=== PATIENT | male | born 1970 | race Hispanic/Latino ===

== ENCOUNTER 2020-10-18 20:12 | Inpatient (IN) | payer OTHER ==
[2020-10-18] MEDS ORDERED: ALBUTEROL 2.5 MG/3 ML NEB SOL ONE (20:52)
[2020-10-18] MEDS ORDERED: METHYLPREDNISOLONE 125 MG INJ ONE (20:52)
[2020-10-18] MEDS ORDERED: IPRATROPIUM BROM 0.5MG/2.5ML ONE (20:53)
[2020-10-18 21:31] LABS: Absolute Lymphocytes (CBC) 0.8 K/uL (0.7-4.9); Basophils % 0.4 % (0-1.3); Hematocrit 42.6 % (39.6-49.0); Lymphocytes % 12.6 % (15.3-44.8); MPV 8.6 fL (7.6-11.3); RBC Red Blood Cell Count 4.79 M/uL (4.33-5.43)
[2020-10-18 21:54] LABS: ALT/SGPT 66 U/L (12-78); AST/SGOT 94 U/L (15-37); Albumin 2.8 g/dL (3.4-5.0); Alkaline Phosphatase 44 U/L (45-117); BUN Blood Urea Nitrogen 25 mg/dL (7-18); Bicarbonate 26 mmol/L (21-32); Bilirubin Direct 0.2 mg/dL (0-0.2); Bilirubin Total 0.6 mg/dL (0.2-1.0); Ferritin 2215.2 ng/mL (26-388); Glucose Level 142 mg/dL (74-106); Protein, Total 7.6 g/dL (6.4-8.2); Sodium Level 137 mmol/L (136-145); Troponin (Emerg Dept Use Only) < 0.02 ng/mL (0.0-0.045)
[2020-10-18 22:00] LABS: Protime INR 1.24
[2020-10-18 22:26] LABS: SARS-COV-2 RT PCR POSITIVE (NEGATIVE)
--- NOTE | 2020-10-18 23:09 | ER ---
Nurse's Notes [facility] Name: Cornelio Last Age: 50 yrs Sex: Male : 1970 Arrival Date: 10/18/2020 Time: 20:17 Bed 7 Private MD: Diagnosis: Pneumonia due to SARS-associated coronavirus;Hypoxia Presentation: 10/18 20:19 Chief complaint: EMS states: Pt reports SOB, lives with covid positive family. 77 on RA jb4 90 on NRB. Coronavirus screen: Client presents with at least one sign or symptom that may indicate coronavirus-19. Standard/surgical mask placed on the client. Provider contacted for isolation considerations. Ebola Screen: No symptoms or risks identified at this time. Initial Sepsis Screen: Does the patient meet any 2 criteria? RR > 20 per min. Yes Does the patient have a suspected source of infection? No. Patient's initial sepsis screen is negative. Risk Assessment: Do you want to hurt yourself or someone else? Patient reports no desire to harm self or others. Onset of symptoms was October 18, 2020. Transition of care: patient was not received from another setting of care. 20:19 Method Of Arrival: EMS: [facility] jb4 20:19 Acuity: DARVIN 1 jb4 Historical: - Allergies: 20:22 No Known Allergies; jb4 - Home Meds: 20:22 None [Active]; jb4 - PMHx: 20:22 None; jb4 - PSHx: 20:22 None; jb4 - Immunization history:: Adult Immunizations up to date. - Social history:: Smoking status: Patient denies any tobacco usage or history of. Patient/guardian denies using alcohol, street drugs. Screenin:34 Abuse screen: Denies threats or abuse. Denies injuries from another. Nutritional mg2 screening: No deficits noted. Tuberculosis screening: No symptoms or risk factors identified. Fall Risk IV access (20 points). Assessment: 20:20 General: Appears distressed, uncomfortable, ill, Behavior is cooperative. Pain: Denies jb4 pain. Neuro: Level of Consciousness is awake, alert, obeys commands, Oriented to person, place, time, situation. Cardiovascular: Patient's skin is warm and dry. Rhythm is sinus rhythm. Respiratory: Airway is patent Respiratory effort is labored, shallow, Respiratory pattern is symmetrical, tachypnea Breath sounds are clear in mediastinum, left upper lobe, left posterior upper lobe and right posterior upper lobe Breath sounds with crackles in left posterior lower lobe, right posterior middle lobe and right posterior lower lobe Breath sounds are diminished in right middle lobe, left lower lobe and right lower lobe. GI: No signs and/or symptoms were reported involving the gastrointestinal system. : No signs and/or symptoms were reported regarding the genitourinary system. EENT: No signs and/or symptoms were reported regarding the EENT system. Derm: Skin is intact, Skin is pink, warm \T\ dry. Musculoskeletal: Circulation, motion, and sensation intact. Range of motion: intact in all extremities. 21:30 Reassessment: Patient appears in no apparent distress at this time. Patient and/or jb4 family updated on plan of care and expected duration. Pain level reassessed. Pt reports feeling significantly better and taking deeper breaths is easier. respirations remain tachypneic and labored, appears to be more at ease. Patient states feeling better. Patient states symptoms have improved. 22:30 Reassessment: Patient appears in no apparent distress at this time. No changes from jb4 previously documented assessment. Patient and/or family updated on plan of care and expected duration. Pain level reassessed. Vital Signs: 20:19 BP 141 / 93; Pulse 87; Resp 36; Temp 98.2(TE); Pulse Ox 90% on Non-rebreather mask; jb4 Weight 124.74 kg (R); Height 5 ft. 11 in. (180.34 cm) (R); Pain 0/10; 21:34 BP 117 / 87; Pulse 90; Pulse Ox 91% on NC; mg2 21:44 Resp 34; jb4 22:30 BP 120 / 69; Pulse 93; Resp 35; Pulse Ox 88% on 15 lpm NC; jb4 23:30 BP 110 / 71; Pulse 81; Resp 35; Pulse Ox 92% on 15 lpm NC; jb4 20:19 Body Mass Index 38.35 (124.74 kg, 180.34 cm) jb4 ED Course: 20:17 Patient arrived in ED. bb 20:19 Estiven Viveros, RN is Primary Nurse. jb4 20:22 Triage completed. jb4 20:22 Arm band placed on right wrist. jb4 20:26 Angelito Benton NP is PHCP. pm1 20:26 Glen White MD is Attending Physician. pm1 20:40 Initial lab(s) drawn, by me, sent to lab. Inserted saline lock: 18 gauge in right jb4 antecubital area, using aseptic technique. Blood collected. 20:40 First set of blood cultures drawn by me. jb4 20:55 Second set of blood cultures drawn by me. jb4 22:18 Chest Single View In Process Unspecified. EDMS 23:08 Mauro Godiwn PA is Hospitalizing Provider. pm1 04 00:24 Danny Guadalupe is Hospitalizing Provider. pm1 01:17 Patient has correct armband on for positive identification. mg2 01:17 No provider procedures requiring assistance completed. Patient admitted, IV remains in mg2 place. Administered Medications: 10/18 20:51 Drug: SOLU-Medrol 125 mg Route: IVP; Site: right antecubital; jb4 20:52 Drug: Albuterol - atroVENT (ipratropium) (3:1) (2.5 mg - 0.5 mg) 3 ml Route: Nebulizer; jb4 23:49 Drug: NS 0.9% 1000 ml Route: IV; Rate: 1000 ml; Site: right antecubital; mg2 Outcome: 23:08 Decision to Hospitalize by Provider. pm1 10/19 01:26 Patient left the ED. mg2 Signatures: Dispatcher [employer] EDCT Pauline Cabral RN RN bb Angelito Benton NP GROVE SUPERINTENDENT pm1 Estiven Viveros RN RN jb4 Salbador Pappas RN RN mg2 Corrections: (The following items were deleted from the chart) 10/18 21:45 21:30 Reassessment: Patient appears in no apparent distress at this time. Patient jb4 and/or family updated on plan of care and expected duration. Pain level reassessed. Patient is alert, oriented x 3, equal unlabored respirations, skin warm/dry/pink. Pt reports feeling significantly better and taking deeper breaths is easier. Patient states feeling better. Patient states symptoms have improved. jb4
--- NOTE | 2020-10-18 23:09 | EDPHYS ---
Physician Documentation [facility] Name: Cornelio Last Age: 50 yrs Sex: Male : 1970 Arrival Date: 10/18/2020 Time: 20:17 Bed 7 Private MD: ED Physician Glen White HPI: 10/18 20:42 This 50 yrs old Male presents to ER via EMS with complaints of Breathing pm1 Difficulty. 20:42 The patient has shortness of breath at rest. Onset: The symptoms/episode began/occurred pm1 Onset of cough and congestion about 2 weeks ago. SOB onset today. Duration: The symptoms are continuous. The patient's shortness of breath is aggravated by light activity, is alleviated by nothing. 20:42 Associated signs and symptoms: Pertinent positives: fever, Cough, Pertinent negatives: pm1 chest pain, nausea, vomiting, Diarrhea. Severity of symptoms: in the emergency department the symptoms are worse. The patient has not experienced similar symptoms in the past. The patient has not recently seen a physician, and does not have an established primary care provider. Patient's family members positive for covid. Historical: - Allergies: 20:22 No Known Allergies; jb4 - Home Meds: 20:22 None [Active]; jb4 - PMHx: 20:22 None; jb4 - PSHx: 20:22 None; jb4 - Immunization history:: Adult Immunizations up to date. - Social history:: Smoking status: Patient denies any tobacco usage or history of. Patient/guardian denies using alcohol, street drugs. ROS: 20:42 ENT: Negative for injury, pain, and discharge, Neck: Negative for injury, pain, and pm1 swelling, Cardiovascular: Negative for chest pain, palpitations, and edema. 20:42 Abdomen/GI: Negative for abdominal pain, nausea, vomiting, diarrhea, and constipation, Back: Negative for injury and pain, MS/Extremity: Negative for injury and deformity, Skin: Negative for injury, rash, and discoloration, Neuro: Negative for headache, weakness, numbness, tingling, and seizure. 20:42 Constitutional: Positive for body aches, fatigue, fever. 20:42 Respiratory: Positive for cough, shortness of breath. Exam: 20:42 Constitutional: This is a well developed, well nourished patient who is awake, alert, pm1 and in no acute distress. Head/Face: Normocephalic, atraumatic. Chest/axilla: Normal chest wall appearance and motion. Nontender with no deformity. No lesions are appreciated. Cardiovascular: Regular rate and rhythm with a normal S1 and S2. No gallops, murmurs, or rubs. Normal PMI, no JVD. No pulse deficits. 20:42 Back: No spinal tenderness. No costovertebral tenderness. Full range of motion. Skin: Warm, dry with normal turgor. Normal color with no rashes, no lesions, and no evidence of cellulitis. MS/ Extremity: Pulses equal, no cyanosis. Neurovascular intact. Full, normal range of motion. 20:42 Respiratory: mild respiratory distress is noted, Breath sounds: decreased breath sounds, Respiratory rate: 36 20:42 Abdomen/GI: Inspection: abdomen appears normal, Palpation: abdomen is soft and non-tender, in all quadrants. 20:42 Neuro: Exam negative for acute changes, Orientation: is normal, Mentation: is normal, Motor: is normal, moves all fours. Vital Signs: 20:19 BP 141 / 93; Pulse 87; Resp 36; Temp 98.2(TE); Pulse Ox 90% on Non-rebreather mask; jb4 Weight 124.74 kg (R); Height 5 ft. 11 in. (180.34 cm) (R); Pain 0/10; 21:34 BP 117 / 87; Pulse 90; Pulse Ox 91% on NC; mg2 21:44 Resp 34; jb4 22:30 BP 120 / 69; Pulse 93; Resp 35; Pulse Ox 88% on 15 lpm NC; jb4 23:30 BP 110 / 71; Pulse 81; Resp 35; Pulse Ox 92% on 15 lpm NC; jb4 20:19 Body Mass Index 38.35 (124.74 kg, 180.34 cm) jb4 MDM: 20:31 Patient medically screened. pm1 23:06 Data reviewed: vital signs. Counseling: I had a detailed discussion with the patient pm1 and/or guardian regarding: the historical points, exam findings, and any diagnostic results supporting the discharge/admit diagnosis, lab results, radiology results, the need for further work-up and treatment in the hospital. 10/18 20:30 Order name: Urine Microscopic Only pm1 10/18 21:14 Order name: Basic Metabolic Panel EDGA 10/18 21:14 Order name: Liver (Hepatic) Function EDGA 10/18 21:14 Order name: Troponin (Emerg Dept Use Only) EDGA 10/18 21:14 Order name: C-Reactive Protein EDGA 10/18 21:14 Order name: Ferritin EDGA 10/18 21:15 Order name: Lactate; Complete Time: 22:33 EDGA 10/18 21:15 Order name: Procalcitonin; Complete Time: 22:33 EDMS 10/18 21:15 Order name: CBC with Automated Diff; Complete Time: 22:33 EDMS 10/18 21:15 Order name: Protime (+INR); Complete Time: 22:33 EDGA 10/18 21:15 Order name: PTT, Activated Partial Thromb; Complete Time: 22:33 EDGA 10/18 21:15 Order name: D-Dimer; Complete Time: 22:33 EDGA 10/18 21:15 Order name: Blood Culture EDGA 10/18 21:15 Order name: Blood Culture EDGA 10/18 20:30 Order name: EKG; Complete Time: 22:31 pm10/18 20:30 Order name: Cardiac monitoring; Complete Time: 20:33 pm10/18 20:30 Order name: Droplet/Contact Precautions; Complete Time: 20:33 pm10/18 20:30 Order name: EKG - Nurse/Tech; Complete Time: 20:33 pm10/18 20:30 Order name: IV Start; Complete Time: 20:53 pm10/18 20:30 Order name: Labs collected and sent; Complete Time: 20:53 pm10/18 20:30 Order name: O2 Per Protocol; Complete Time: 20:53 pm10/18 20:30 Order name: O2 Sat Monitoring; Complete Time: 20:53 pm10/18 21:15 Order name: Group A Streptococcus Rapid Sc EDGA 10/18 22:09 Order name: Chest Single View EDGA 10/18 22:26 Order name: COVID-19/FLU A+B; Complete Time: 22:33 EDGA 10/18 23:52 Order name: CT Chest For PE Angio pm1 10/19 00:42 Order name: CONS Physician Consult EDGA 10/19 01:05 Order name: Lactate Sepsis 2 HR Follow-up; Complete Time: 01:19 EDMS Administered Medications: 20:51 Drug: SOLU-Medrol 125 mg Route: IVP; Site: right antecubital; jb4 20:52 Drug: Albuterol - atroVENT (ipratropium) (3:1) (2.5 mg - 0.5 mg) 3 ml Route: Nebulizer; jb4 23:49 Drug: NS 0.9% 1000 ml Route: IV; Rate: 1000 ml; Site: right antecubital; mg2 Disposition: 10/19 08:21 Co-signature as Attending Physician, Glen White MD. pkl Disposition: 10/18/20 23:08 Hospitalization ordered by Danny Guadalupe for Inpatient Admission. Preliminary diagnosis are Pneumonia due to SARS-associated coronavirus, Hypoxia. - Bed requested for Telemetry/MedSurg (Inpatient). - Status is Inpatient Admission. mg2 - Condition is Stable. - Problem is new. - Symptoms have improved. Signatures: Dispatcher [employer] EDGA Glen White MD MD pkl Kimberly Corona, RN RN cg Angelito Benton NP PHOTOGRAPHIC SPECIALIST pm1 Estiven Viveros RN RN jb4 Salbador Pappas RN RN mg2 Corrections: (The following items were deleted from the chart) 10/18 22:08 21:29 Chest Single View ordered. [facility] 22:34 22:31 Chest Single View+RAD.RAD.BRZ ordered. [facility] 10/19 00:17 10/18 22:31 BLOOD CULTURE*+BA.LAB.BRZ ordered. [facility] 10/19 00:17 10/18 22:31 BASIC METABOLIC PANEL+C.LAB.BRZ ordered. [facility] 10/19 00:17 10/18 22:31 C-REACTIVE PROTEIN+C.LAB.BRZ ordered. [facility] 10/19 00:17 10/18 22:31 CBC+H.LAB.BRZ ordered. [facility] 10/19 00:17 10/18 22:31 D-DIMER+COAG.LAB.BRZ ordered. [facility] 10/19 00:17 10/18 22:31 FERRITIN+C.LAB.BRZ ordered. [facility] 10/19 00:17 10/18 22:31 Influenza Screen (A \T\ B)+BA.LAB.BRZ ordered. [facility] 10/19 00:17 10/18 22:31 LACTATE+C.LAB.BRZ ordered. [facility] 10/19 00:17 04 22:31 HEPATIC FUNCTION+C.LAB.BRZ ordered. [facility] 10/19 00:17 04 22:31 LIPASE+C.LAB.BRZ ordered. [facility] 10/19 00:17 10/18 22:31 Procalcitonin+C.LAB.BRZ ordered. [facility] 10/19 00:17 10/18 22:31 PROTIME (+INR)+COAG.LAB.BRZ ordered. [facility] 10/19 00:17 10/18 22:31 PTT, ACTIVATED+COAG.LAB.BRZ ordered. [facility] 10/19 00:17 10/18 22:31 Group A Streptococcus Rapid Sc+BA.LAB.BRZ ordered. [facility] 10/19 00:17 10/18 22:31 TROPONIN (EMERG DEPT USE ONLY)+C.LAB.BRZ ordered. [facility] 10/19 00:17 04 22:31 CORONAVIRUS+MR.LAB.BRZ ordered. [facility] 10/19 00:24 04 23:08 Hospitalization Ordered by Mauro WATSON for Inpatient Admission. pm1 Preliminary diagnosis is Pneumonia due to SARS-associated coronavirus; Hypoxia. Bed requested for Telemetry/MedSurg (Inpatient). Status is Inpatient Admission. Condition is Stable. Problem is new. Symptoms have improved. pm1 10/19 00:54 00:24 10/18/2020 23:08 Hospitalization Ordered by Danny Guadalupe for Inpatient cg Admission. Preliminary diagnosis is Pneumonia due to SARS-associated coronavirus; Hypoxia. Bed requested for Telemetry/MedSurg (Inpatient). Status is Inpatient Admission. Condition is Stable. Problem is new. Symptoms have improved. pm1 01:26 00:54 10/18/2020 23:08 Hospitalization Ordered by Danny Guadalupe for Inpatient mg2 Admission. Preliminary diagnosis is Pneumonia due to SARS-associated coronavirus; Hypoxia. Bed requested for Telemetry/MedSurg (Inpatient). Status is Inpatient Admission. Condition is Stable. Problem is new. Symptoms have improved. cg
[2020-10-19] MEDS ORDERED: NA CHLORIDE 0.9% 1,000 ML ONE (00:02)
[2020-10-19] MEDS ORDERED: HEPARIN 5000 UNIT/ML 1 ML VIAL SQ SCH (01:06)
[2020-10-19] MEDS ORDERED: MORPHINE 2 MG/ML SYR IV PRN (01:06)
[2020-10-19] MEDS ORDERED: ACETAMINOPHEN 500 MG TAB PO PRN (01:06)
[2020-10-19] MEDS ORDERED: ONDANSETRON 4 MG/2 ML VIAL IV PRN (01:06)
[2020-10-19] MEDS ORDERED: ENOXAPARIN 100 MG/ML SYR SQ SCH (01:52)
[2020-10-19 02:15] VITALS: BMI 36.1
[2020-10-19] MEDS: BENZONATATE 100 MG CAP PO PRN ×2 (02:18→21:21)
[2020-10-19] MEDS: APIXABAN 5 MG TABLET PO SCH ×3 (02:18→20:44)
[2020-10-19] MEDS ORDERED: ALBUTEROL 2.5 MG/3 ML NEB SOL NEB PRN (02:25)
--- NOTE | 2020-10-19 02:40 | P.HP ---
Certification for Inpatient Patient admitted to: Inpatient With expected LOS: >2 Midnights Patient will require the following post-hospital care: None Practitioner: I am a practitioner with admitting privileges, knowledge of patient current condition, hospital course, and medical plan of care. Services: Services provided to patient in accordance with Admission requirements found in Title 42 Section 412.3 of the Code of Federal Regulations Patient History Date of Service: 10/18/20 Reason for admission: covid pneumonia, bilateral PE History of Present Illness: Mr. Last is a 50 yo male with no past medical history here today for 3 weeks of cough and fatigue, found to be COVID+ today. He reports anorexia, chills, diarrhea for 1 week, and SOB beginning today. He denies wheezing, night sweats, nausea, and vomiting. D Dimer [id number]. CTPE showed bilateral pulmonary embolic disease, clot burden is greatest on the right. No saddle embolus. Possible early right-sided heart strain. Extensive multifocal infiltrates bilaterally, imaging features can be seen with viral pneumonia. BUN 25. Cr 1.38. GFR 54. Glu 142. Ferritin 2215. AST 94. Alk phos 44. CRP 138. Alb 2.8. Procal 0.61. Allergies No Known Allergies Allergy (Unverified 10/19/20 01:02) Home medications list reviewed: No Home Medications: NK [No Home Meds] 10/19/20 - Past Medical/Surgical History Has patient received pneumonia vaccine in the past: No Diabetic: No Past Medical History: Patient denies medical history Past Surgical History: Patient denies surgical history - Family History Mother Medical History: Diabetes Father Medical History: Diabetes - Social History Smoking Status: Never smoker Alcohol use: No CD- Drugs: No Caffeine use: Yes Place of Residence: Home Review of Systems General: Chills, Malaise, As per HPI Eyes: Unremarkable ENT: Unremarkable Respiratory: Cough, Shortness of Breath, SOB with Excertion, As per HPI Cardiovascular: Unremarkable Gastrointestinal: Diarrhea, As per HPI Musculoskeletal: Unremarkable Integumentary: Unremarkable Neurological: Unremarkable Lymphatics: Unremarkable Physical Examination - Vital Signs Temperature: 97.1 F Blood Pressure: 126/66 Pulse: 81 Respirations: 20 Pulse Ox (%): 91 - Physical Exam General: Alert, In no apparent distress, Oriented x3, Cooperative, Other (on high flow at bedside, able to speak in full sentences, NAD, asking for food ) HEENT: Atraumatic, Normocephalic, PERRLA, Mucous membr. moist/pink, EOMI, Sclerae nonicteric Neck: Supple, 2+ carotid pulse no bruit, JVD not distended, No Thyromegaly, No LAD Respiratory: Diminished Cardiovascular: No edema, Normal pulses, Regular rate/rhythm, Normal S1 S2, No gallops, No rubs, No murmurs Capillary refill: <2 Seconds Gastrointestinal: Normal bowel sounds, Soft and benign, Non-distended, No ascites, No tenderness, No masses, No rebound, No guarding Musculoskeletal: No clubbing, No swelling, No contractures, No erythema, No tenderness, No warmth Integumentary: No rashes, No breakdown, No significant lesion, No tenderness/swelling, No erythema, No warmth, No cyanosis Neurological: Normal gait, Normal speech, Normal strength at 5/5 x4 extr, Normal tone, Sensation intact, Cranial nerves 3-12 intact, Normal affect Lymphatics: No axilla or inguinal lymphadenopathy - Studies Laboratory Data (last 24 hrs) 10/18/20 20:40: PT 14.3 H, INR 1.24, APTT 25.0 10/18/20 20:40: WBC 6.00, Hgb 14.5, Hct 42.6, Plt Count 241 10/18/20 20:40: Sodium 137, Potassium 4.0, BUN 25 H, Creatinine 1.38 H, Glucose 142 H, Total Bilirubin 0.6, AST 94 H, ALT 66, Alkaline Phosphatase 44 L 10/18/20 20:30: PT Cancelled, INR Cancelled, APTT Cancelled 10/18/20 20:30: WBC Cancelled, Hgb Cancelled, Hct Cancelled, Plt Count Cancelled 10/18/20 20:30: Sodium Cancelled, Potassium Cancelled, BUN Cancelled, Creatinine Cancelled, Glucose Cancelled, Total Bilirubin Cancelled, AST Cancelled, ALT Cancelled, Alkaline Phosphatase Cancelled, Lipase Cancelled Assessment & Plan - Problems (Diagnosis) (1) Pneumonia due to COVID-19 virus Current Visit: Yes Status: Acute (2) Pulmonary embolism Current Visit: Yes Status: Acute Qualifiers: Pulmonary embolism type: unspecified Chronicity: acute Acute cor pulmonale presence: unspecified Qualified Code(s): I26.99 - Other pulmonary embolism without acute cor pulmonale - Plan COVID supplements, steroids, ivermectin started Eliquis 10 mg BID x 7 days for bilateral pulmonary embolism Pulm and RT consulted, daily sats, home O2 evaluation daily CRP and ferritin, troponin pending continue on high flow and continue to monitor A1c found to be 6.5%, no previous diagnosis of diabetes, will start sliding scale and consult dietitian. Discharge Plan: Home Plan to discharge in: 72 Hours - Advance Directives Does patient have a Living Will: No Does patient have a Durable POA for Healthcare: No - Code Status/Comfort Care Code Status Assessed: Yes (DNI) Critical Care: No Time Spent Managing PTS Care (In Minutes): 70
[2020-10-19 02:47] LABS: Thyroid Stimulating Hormone 0.719 uIU/mL (0.360-3.740)
[2020-10-19 04:02] LABS: Absolute Lymphocytes (CBC) 0.4 K/uL (0.7-4.9); Basophils % 0.3 % (0-1.3); Hematocrit 39.8 % (39.6-49.0); Lymphocytes % 10.9 % (15.3-44.8); MPV 8.5 fL (7.6-11.3); RBC Red Blood Cell Count 4.42 M/uL (4.33-5.43)
[2020-10-19 04:57] LABS: Urine Appearance CLEAR (Clear); Urine Bilirubin NEGATIVE (Negative); Urine Blood NEGATIVE (Negative); Urine Color YELLOW (Yellow); Urine Glucose 2+ (Negative); Urine Protein 1+ (Negative); Urine Specific Gravity >=1.030 (1.005-1.030); Urine Urobilinogen 0.2 mg/dL (0.2-1.0); Urine pH 5.5 (5.0-7.0)
[2020-10-19 04:58] LABS: Albumin 2.6 g/dL (3.4-5.0); Bilirubin Total 0.5 mg/dL (0.2-1.0); Ferritin 2120.6 ng/mL (26-388); Magnesium 2.9 mg/dL (1.8-2.4); Phosphorus 3.1 mg/dL (2.5-4.9); Potassium 3.9 mmol/L (3.5-5.1); Protein, Total 7.2 g/dL (6.4-8.2)
[2020-10-19 04:58] LABS: Urine Microscopic Reflex ORDER UMIC
[2020-10-19 05:12] LABS: Urine Bacteria <20 /HPF (NONE SEEN); Urine RBC <5 /HPF (NONE SEEN); Urine Urothelial Cells <5 /HPF (NONE SEEN)
--- NOTE | 2020-10-19 05:33 | RAD REPORT ---
EXAM DESCRIPTION: [place] Single View10/18/2020 10:19 pm CLINICAL HISTORY: Shortness of breath COMPARISON: none FINDINGS: Marked bilateral pulmonary opacities. The heart is mildly enlarged IMPRESSION: Marked bilateral pulmonary opacities likely pneumonia
--- NOTE | 2020-10-19 08:09 | EKG ---
Test Date: 2020-10-18 Test Time: 20:25:26 Animal Sticker: LINO MEASUREMENT RESULTS: Intervals: Rate: 85 NM: 152 QRSD: 76 QT: 368 QTc: 437 [place]: P: 50 NM: 152 QRS: -17 T: 55 INTERPRETIVE STATEMENTS: Normal sinus rhythm Minimal voltage criteria for LVH, may be normal variant Borderline ECG Compared to ECG 02/28/2002 00:37:00 No significant changes Electronically Signed On 10-19-20 08:08:09 CDT by Sunday Topete
--- NOTE | 2020-10-19 08:46 | P.CNS ---
Date of Consult: 10/19/20 Reason for Consult: Pulmonary embolism Chief Complaint: covid pneumonia, bilateral PE History of Present Illness: Patient is 50 years of age no past medical history is been sick for about 3 weeks complaining of cough and fatigue and was diagnosed with bran virus. Patient was found to have bilateral ground-glass changes consistent with bran virus infection in addition to bilateral pulmonary embolism Patient is currently on high-flow 15 L sating 90% Allergies No Known Allergies Allergy (Unverified 10/19/20 01:02) Home Medications: NK [No Home Meds] 10/19/20 - Past Medical/Surgical History Diabetic: No - Family History Mother Medical History: Diabetes Father Medical History: Diabetes - Social History Alcohol use: No CD- Drugs: No Caffeine use: Yes Place of Residence: Home Review of Systems General: Weakness Respiratory: Cough, Shortness of Breath Physical Examination Temp Pulse Resp BP Pulse Ox 97.1 F 56 18 112/69 93 10/19/20 08:00 10/19/20 08:00 10/19/20 08:00 10/19/20 08:00 10/19/20 08:00 Laboratory Data (last 24 hrs) 10/18/20 20:40: PT 14.3 H, INR 1.24, APTT 25.0 10/18/20 20:40: WBC 6.00, Hgb 14.5, Hct 42.6, Plt Count 241 10/18/20 20:40: Sodium 137, Potassium 4.0, BUN 25 H, Creatinine 1.38 H, Glucose 142 H, Total Bilirubin 0.6, AST 94 H, ALT 66, Alkaline Phosphatase 44 L 10/18/20 20:30: PT Cancelled, INR Cancelled, APTT Cancelled 10/18/20 20:30: WBC Cancelled, Hgb Cancelled, Hct Cancelled, Plt Count Cancelled 10/18/20 20:30: Sodium Cancelled, Potassium Cancelled, BUN Cancelled, Creatinine Cancelled, Glucose Cancelled, Total Bilirubin Cancelled, AST Cancelled, ALT Cancelled, Alkaline Phosphatase Cancelled, Lipase Cancelled - Problems (1) Pneumonia due to COVID-19 virus Current Visit: Yes Status: Acute Plan: Patient is 50 years of age admitted with bilateral bran virus pneumonia continue with present treatment (2) Pulmonary embolism Current Visit: Yes Status: Acute Plan: As bilateral pulmonary embolism continue with p.o. Eliquis Qualifiers: Pulmonary embolism type: unspecified Chronicity: acute Acute cor pulmonale presence: unspecified Qualified Code(s): I26.99 - Other pulmonary embolism without acute cor pulmonale
[2020-10-19] MEDS: VITAMIN D 1000 UNIT TAB PO SCH (08:53)
[2020-10-19] MEDS: ZINC SULFATE 220 MG CAP PO SCH (08:53)
[2020-10-19] MEDS: METHYLPREDNISOLONE 40 MG INJ IV SCH ×2 (08:53→20:45)
[2020-10-19] MEDS: THIAMINE 200 MG/2 ML INJ IVP SCH (08:53)
[2020-10-19] MEDS: FAMOTIDINE 20 MG TAB PO SCH ×2 (08:53→20:45)
[2020-10-19] MEDS: ASCORBIC ACID 500 MG TABLET PO SCH ×4 (08:54→20:45)
[2020-10-19] MEDS: INSULIN -REGULAR HUMAN 50 UNIT/0.5 ML ML SQ SCH ×4 (08:54→20:44)
[2020-10-19] MEDS ORDERED: POTASSIUM CL SA 10 MEQ TAB PO ONE (09:00)
[2020-10-19] MEDS ORDERED: IVERMECTIN 3 MG TABLET PO ONE (09:00)
--- NOTE | 2020-10-19 12:12 | RAD REPORT ---
EXAM DESCRIPTION: CT - Chest For Pe Angio - 10/19/2020 6:32 am CLINICAL HISTORY: SOB TECHNIQUE: Contiguous axial images obtained through the chest during angiographic phase following th e uneventful administration of IV contrast. Sagittal and coronal reformatted images were provided. MN P reformatted images were provided. This exam was performed according to our departmental dose-optimization program, which includes autom ated exposure control, adjustment of the mA and/or kV according to patient size and/or use of iterati ve reconstruction technique. COMPARISON: No prior exams provided for comparison. FINDINGS: Diagnostic quality: There is good opacification of the pulmonary arterial tree. Motion art ifact degrades image quality and limits evaluation of segmental and subsegmental vessels. Lungs: Extensive multifocal, confluent groundglass opacities within the lungs bilaterally. Airways ar e patent. Pleura: No effusion. No pneumothorax. Heart and pericardium: The heart is enlarged. There may be slight bowing of the interventricular sept um. Minimal pericardial effusion. Mediastinum and alona: No pathologically enlarged lymph nodes. Lower neck and chest wall: Unremarkable Vessels: Central, segmental and subsegmental right lower lobe pulmonary arterial filling defects. Add itional scattered segmental and subsegmental right upper, right middle and left lower lobe pulmonary arterial filling defects. No thoracic aortic aneurysm. Upper abdomen: The liver is enlarged and diffusely low in density compatible with steatosis. Bones: Mild multilevel spondylosis. No acute fracture. IMPRESSION: 1. Bilateral pulmonary embolic disease, clot burden is greatest on the right. No saddl e embolus. Possible early right-sided heart strain. 2. Extensive multifocal infiltrates bilaterally. Imaging features can be seen with viral pneumonia, though are nonspecific and can occur with a variety of infectious and noninfectious processes. Bijan sainz Reference: https://pubs.[facility].org/doi/full/10.1148/ryct.9066027660 3. Other findings as above. THIS REPORT CONTAINS FINDINGS THAT MAY BE CRITICAL TO PATIENT CARE: The findings were verbally discu ssed via telephone conference with Mauro Godwin NP, on 10/19/2020 1:45 AM CDT. The results were acknow ledged and understood. Electronically signed by: Clyde Mandujano MD 10/19/2020 1:46 AM CDT Due to temporary technical issues with the PACS/Fluency reporting system, reports are being signed by the in house radiologist without review as a courtesy to ensure prompt reporting. The interpreting r adiologist is fully responsible for the content of the report.
[2020-10-19 15:18] LABS: Arterial Blood Carboxyhemoglob 0.5 % (0-1.5); Blood O2 Saturation 93.4 % (92-98.5)
--- NOTE | 2020-10-19 15:35 | P.PN ---
Subjective Date of Service: 10/19/20 Chief Complaint: covid pneumonia, bilateral PE Patient maintained on high-flow oxygen. SaO2 is borderline on the high-flow oxygen. Physical Examination - Vital Signs Temperature: 96.7 F Blood Pressure: 114/63 Pulse: 54 Respirations: 18 Pulse Ox (%): 86 - Physical Exam General: Alert, In no apparent distress HEENT: Other (High-flow oxygen) Neck: JVD not distended Respiratory: Other (Nonlabored breathing) Cardiovascular: No edema, Regular rate/rhythm Gastrointestinal: Soft and benign, Non-distended Musculoskeletal: No swelling Integumentary: No rashes Neurological: Normal strength at 5/5 x4 extr - Studies Laboratory Data (last 24 hrs) 10/18/20 20:40: PT 14.3 H, INR 1.24, APTT 25.0 10/18/20 20:40: WBC 6.00, Hgb 14.5, Hct 42.6, Plt Count 241 10/18/20 20:40: Sodium 137, Potassium 4.0, BUN 25 H, Creatinine 1.38 H, Glucose 142 H, Total Bilirubin 0.6, AST 94 H, ALT 66, Alkaline Phosphatase 44 L 10/18/20 20:30: PT Cancelled, INR Cancelled, APTT Cancelled 10/18/20 20:30: WBC Cancelled, Hgb Cancelled, Hct Cancelled, Plt Count Cancelled 10/18/20 20:30: Sodium Cancelled, Potassium Cancelled, BUN Cancelled, Creatinine Cancelled, Glucose Cancelled, Total Bilirubin Cancelled, AST Cancelled, ALT Cancelled, Alkaline Phosphatase Cancelled, Lipase Cancelled Microbiology Data (last 24 hrs): 10/18/20 20:40 Throat Group A Streptococcus Rapid Screen - Final Assessment And Plan - Current Problems (Diagnosis) (1) Acute respiratory failure with hypoxia Current Visit: Yes Status: Acute (2) Pneumonia due to COVID-19 virus Current Visit: Yes Status: Acute (3) Pulmonary embolism Current Visit: Yes Status: Acute Qualifiers: Pulmonary embolism type: unspecified Chronicity: acute Acute cor pulmonale presence: unspecified Qualified Code(s): I26.99 - Other pulmonary embolism without acute cor pulmonale - Plan Titrate oxygen. BiPAP p.r.n. Continue high-flow oxygen IV Solu-Medrol. Status post Ivermectin. High at a convalescent plasma. Pharmacy to evaluate for Remdesivir therapy. Continue Eliquis regimen for PE. Pulmonary input appreciated.
[2020-10-20] MEDS ORDERED: NA CHLORIDE 0.9% 100 ML ONE (01:20)
[2020-10-20] MEDS ORDERED: DIPHENHYDRAMINE 25 MG TAB/CAP PO ONE (02:26)
[2020-10-20] MEDS ORDERED: GUAIFENESIN/CODEINE 5ML UCUP PO PRN (02:39)
[2020-10-20] MEDS ORDERED: DIPHENHYDRAMINE 25 MG TAB/CAP ONE (02:48)
[2020-10-20] MEDS ORDERED: GUAIFENESIN/CODEINE 5ML UCUP PO ONE (03:14)
[2020-10-20 04:25] LABS: Absolute Lymphocytes (CBC) 0.6 K/uL (0.7-4.9); Basophils % 0.2 % (0-1.3); Lymphocytes % 6.3 % (15.3-44.8); MPV 8.6 fL (7.6-11.3); RBC Red Blood Cell Count 4.68 M/uL (4.33-5.43)
[2020-10-20 04:44] LABS: Albumin 2.7 g/dL (3.4-5.0); Bilirubin Total 0.4 mg/dL (0.2-1.0); C-Reactive Protein 79.6 mg/L (<3.00); Ferritin 2628.3 ng/mL (26-388); Protein, Total 7.4 g/dL (6.4-8.2)
[2020-10-20 05:31] LABS: Blood Morphology Comment NOT SEEN (NOT SEEN); Platelet Estimate ADEQ
[2020-10-20] MEDS: APIXABAN 5 MG TABLET PO SCH ×2 (08:16→20:39)
[2020-10-20] MEDS: FAMOTIDINE 20 MG TAB PO SCH ×2 (08:16→20:40)
[2020-10-20] MEDS: VITAMIN D 1000 UNIT TAB PO SCH (08:16)
[2020-10-20] MEDS: ZINC SULFATE 220 MG CAP PO SCH (08:16)
[2020-10-20] MEDS: THIAMINE 200 MG/2 ML INJ IVP SCH (08:17)
[2020-10-20] MEDS: INSULIN -REGULAR HUMAN 50 UNIT/0.5 ML ML SQ SCH ×4 (08:17→22:10)
[2020-10-20] MEDS: ASCORBIC ACID 500 MG TABLET PO SCH ×4 (08:17→20:40)
[2020-10-20] MEDS: METHYLPREDNISOLONE 40 MG INJ IV SCH ×2 (08:18→20:40)
[2020-10-20] MEDS: BENZONATATE 100 MG CAP PO PRN ×2 (12:08→20:40)
--- NOTE | 2020-10-20 19:03 | P.PN ---
Subjective Date of Service: 10/20/20 Chief Complaint: covid pneumonia, bilateral PE Patient now on BiPAP. Was given convalescent plasma yesterday. Physical Examination - Vital Signs Temperature: 9.1 F Blood Pressure: 126/76 Pulse: 59 Respirations: 18 Pulse Ox (%): 91 - Physical Exam General: In no apparent distress HEENT: Other (BiPAP applied) Respiratory: Other (Non-labored breathing) Cardiovascular: No edema, Regular rate/rhythm Gastrointestinal: Soft and benign, Non-distended Musculoskeletal: No swelling Integumentary: No rashes Neurological: Normal strength at 5/5 x4 extr - Studies Microbiology Data (last 24 hrs): 10/18/20 20:40 Throat Culture & Sensitivity - Final NORMAL UPPER RESPIRATORY MICAELA GROWN. Assessment And Plan - Current Problems (Diagnosis) (1) Acute respiratory failure with hypoxia Current Visit: Yes Status: Acute (2) Pneumonia due to COVID-19 virus Current Visit: Yes Status: Acute (3) Pulmonary embolism Current Visit: Yes Status: Acute Qualifiers: Pulmonary embolism type: unspecified Chronicity: acute Acute cor pulmonale presence: unspecified Qualified Code(s): I26.99 - Other pulmonary embolism without acute cor pulmonale (4) Hyperglycemia, drug-induced Current Visit: Yes Status: Acute - Plan BiPAP and high-flow oxygen p.r.n. Continue IV Solu-Medrol. Status post Ivermectin. Status post convalescent plasma. Patient considered not a candidate for Remdesivir therapy. Continue Eliquis regimen for PE. Pulmonary his following. Insulin sliding scale for steroid induced hyperglycemia.
[2020-10-20] MEDS: MELATONIN 5 MG TABLET PO PRN (20:39)
--- NOTE | 2020-10-20 20:42 | P.PN ---
Subjective Date of Service: 10/20/20 Chief Complaint: covid pneumonia, bilateral PE No change still requiring high concentration of O2 Review of Systems General: Weakness Respiratory: Shortness of Breath Physical Examination - Vital Signs Temperature: 9.1 F Blood Pressure: 126/76 Pulse: 59 Respirations: 18 Pulse Ox (%): 91 - Studies Microbiology Data (last 24 hrs): 10/18/20 20:40 Throat Culture & Sensitivity - Final NORMAL UPPER RESPIRATORY MICAELA GROWN. Assessment & Plan - Problems (Diagnosis) (1) Pneumonia due to COVID-19 virus Current Visit: Yes Status: Acute Plan: P Resp failure NC Add Remdesmire. High concentration of O2 (2) Pulmonary embolism Current Visit: Yes Status: Acute Plan: As bilateral pulmonary embolism continue with p.o. Eliquis, Echo with Doppler Qualifiers: Pulmonary embolism type: unspecified Chronicity: acute Acute cor pulmonale presence: unspecified Qualified Code(s): I26.99 - Other pulmonary embolism without acute cor pulmonale
[2020-10-21 04:04] LABS: Absolute Lymphocytes (CBC) 0.6 K/uL (0.7-4.9); Basophils % 0.2 % (0-1.3); Lymphocytes % 5.4 % (15.3-44.8); MPV 8.4 fL (7.6-11.3); RBC Red Blood Cell Count 4.22 M/uL (4.33-5.43)
[2020-10-21 04:36] LABS: C-Reactive Protein 46.2 mg/L (<3.00); Ferritin 1623.4 ng/mL (26-388); Potassium 4.8 mmol/L (3.5-5.1)
[2020-10-21] MEDS ORDERED: Remdesivir 200 MG in NA CHLORIDE 0.9% 250 ML IV ONE (08:00)
[2020-10-21] MEDS: BENZONATATE 100 MG CAP PO PRN ×2 (08:31→20:56)
[2020-10-21] MEDS: ZINC SULFATE 220 MG CAP PO SCH (08:31)
[2020-10-21] MEDS: ASCORBIC ACID 500 MG TABLET PO SCH ×4 (08:31→20:57)
[2020-10-21] MEDS: INSULIN -REGULAR HUMAN 50 UNIT/0.5 ML ML SQ SCH ×4 (08:31→20:57)
[2020-10-21] MEDS: VITAMIN D 1000 UNIT TAB PO SCH (08:31)
[2020-10-21] MEDS: FAMOTIDINE 20 MG TAB PO SCH ×2 (08:31→20:57)
[2020-10-21] MEDS: APIXABAN 5 MG TABLET PO SCH ×2 (08:32→20:57)
[2020-10-21] MEDS: METHYLPREDNISOLONE 40 MG INJ IV SCH ×2 (08:32→20:57)
[2020-10-21] MEDS: THIAMINE 200 MG/2 ML INJ IVP SCH (08:32)
--- NOTE | 2020-10-21 09:54 | P.PN ---
Subjective Date of Service: 10/21/20 Chief Complaint: covid pneumonia, bilateral PE Subjective: No new changes (Still BiPAP States no new issues) Physical Examination - Vital Signs Temperature: 97.9 F Blood Pressure: 123/72 Pulse: 57 Respirations: 28 Pulse Ox (%): 89 - Physical Exam General: Alert, In no apparent distress, Severe distress (Stable on BiPAP 14/6, FiO2 of 100) HEENT: Atraumatic, Normocephalic, PERRLA Neck: Supple, 2+ carotid pulse no bruit, JVD not distended Respiratory: Diminished, Dull Cardiovascular: No edema, Regular rate/rhythm, Normal S1 S2 Gastrointestinal: Normal bowel sounds, Soft and benign, Non-distended, No rebound Musculoskeletal: No clubbing, No swelling, No contractures Integumentary: No rashes, No breakdown, No significant lesion Neurological: Normal speech, Normal strength at 5/5 x4 extr, Normal tone External genitalia: No edema - Studies Microbiology Data (last 24 hrs): 10/18/20 20:40 Throat Culture & Sensitivity - Final NORMAL UPPER RESPIRATORY MICAELA GROWN. Assessment And Plan - Current Problems (Diagnosis) (1) Acute respiratory failure with hypoxia Current Visit: Yes Status: Acute (2) Hyperglycemia, drug-induced Current Visit: Yes Status: Acute (3) Pneumonia due to COVID-19 virus Current Visit: Yes Status: Acute (4) Pulmonary embolism Current Visit: Yes Status: Acute Qualifiers: Pulmonary embolism type: unspecified Chronicity: acute Acute cor pulmon mesha presence: unspecified Qualified Code(s): I26.99 - Other pulmonary embolism without acute cor pulmonale Physician Review Additional Text: Bilateral pulmonary embolism Covid 19 pneumonia Hyperglycemia-steroid induced Acute respiratory failure-requiring BiPAP plan -status post ivermectin and convalescent plasma -Continue IV steroids -Considered does Remdesivir - will follow with pulmonary -still high 02 requiriement -c/w Eliquis for anticoagulation -start PPI for GI prophylaxis. Continue insulin sliding scale
[2020-10-21] MEDS: MELATONIN 5 MG TABLET PO PRN (20:57)
[2020-10-22 04:41] LABS: Albumin 2.5 g/dL (3.4-5.0); Bilirubin Direct 0.3 mg/dL (0-0.2); Bilirubin Total 0.8 mg/dL (0.2-1.0); Protein, Total 6.7 g/dL (6.4-8.2)
--- NOTE | 2020-10-22 08:06 | ECHO ---
HEIGHT: 5 ft 11 in WEIGHT: 258 lb 11.2 oz DATE OF STUDY: 10/21/[address]: Buddy Dutton MD 2-DIMENSIONAL: YES M.MODE: YES DOPPLER: YES COLOR FLOW: YES TDS: YES PORTABLE: DEFINITY: BUBBLE STUDY: DIAGNOSIS: PULMONARY EMBOLISM CARDIAC HISTORY: CATHERIZATION: NO SURGERY: NO PROSTHETIC VALVE: NO PACEMAKER: NO MEASUREMENTS (cm) DIASTOLIC (NORMALS) SYSTOLIC (NORMALS) IVSd 1.2 (0.6-1.2) LA Diam 3.7 (1.9-4.0) LVEF 60-65% LVIDd 4.5 (3.5-5.7) LVIDs 2.3 (2.0-3.5) %FS 49% LVPWd 1.3 (0.6-1.2) Ao Diam 3.2 (2.0-3.7) 2 DIMENSIONAL ASSESSMENT: RIGHT ATRIUM: NOT WELL SEEN LEFT ATRIUM: NORMAL RIGHT VENTRICLE: NOT WELL SEEN LEFT VENTRICLE: NORMAL TRICUSPID VALVE: MILD TRICUSPID REGURGITATION MITRAL VALVE: NORMAL PULMONIC VALVE: NORMAL AORTIC VALVE: NORMAL PERICARDIAL EFFUSION: NONE AORTIC ROOT: NORMAL LEFT VENTRICULAR WALL MOTION: NORMAL DOPPLER/COLOR FLOW: MILD TRICUPSID REGURGITATION COMMENTS: NORMAL LEFT VENTRICULAR EJECTION FRACTION 60-65%. NORMAL WALL MOTION. RIGHT VENTRICLE IS NOT WELL SEEN. MILD TRICUSPID REGURGITATION. PULMONARY HYPERTENSION WITH RIGHT VENTRICULAR SYSTOLIC PRESSURE OF 55 mmHg AND RIGHT ATRIAL PRESSURE. TECHNOLOGIST: KARENA RICHARDSON
[2020-10-22] MEDS: FAMOTIDINE 20 MG TAB PO SCH ×2 (08:25→21:22)
[2020-10-22] MEDS: THIAMINE 200 MG/2 ML INJ IVP SCH (08:25)
[2020-10-22] MEDS: METHYLPREDNISOLONE 40 MG INJ IV SCH ×2 (08:25→21:22)
[2020-10-22] MEDS: ZINC SULFATE 220 MG CAP PO SCH (08:26)
[2020-10-22] MEDS: ASCORBIC ACID 500 MG TABLET PO SCH ×4 (08:26→21:22)
[2020-10-22] MEDS: Remdesivir 100 MG in NA CHLORIDE 0.9% 250 ML IV SCH (08:29)
[2020-10-22] MEDS: VITAMIN D 1000 UNIT TAB PO SCH (08:30)
[2020-10-22] MEDS: INSULIN -REGULAR HUMAN 50 UNIT/0.5 ML ML SQ SCH ×4 (08:31→21:23)
[2020-10-22] MEDS: APIXABAN 5 MG TABLET PO SCH ×2 (08:42→21:22)
--- NOTE | 2020-10-22 09:21 | P.PN ---
Subjective Date of Service: 10/24/20 Chief Complaint: covid pneumonia, bilateral PE Again no change continues to remain hypoxic on high concentrations of oxygen Review of Systems is unable to be obtained Physical Examination - Vital Signs Temperature: 97.5 F Blood Pressure: 117/67 Pulse: 58 Respirations: 26 Pulse Ox (%): 95 Assessment & Plan - Problems (Diagnosis) (1) Pneumonia due to COVID-19 virus Current Visit: Yes Status: Acute Plan: Respiratory failure no change continue to titrate his O2 down as tolerated labs reviewed (2) Pulmonary embolism Current Visit: Yes Status: Acute Plan: Patient is fully anti coagulated Qualifiers: Pulmonary embolism type: unspecified Chronicity: acute Acute cor pulmonale presence: unspecified Qualified Code(s): I26.99 - Other pulmonary embolism without acute cor pulmonale
--- NOTE | 2020-10-22 12:04 | RAD REPORT ---
EXAM DESCRIPTION: RAD - Chest Single View - 10/22/2020 11:57 am CLINICAL HISTORY: Respiratory failure COMPARISON: October 18 TECHNIQUE: AP portable chest image was obtained 10/22/2020 11:57 am . FINDINGS: Lung volumes remain low. Significant airspace opacification is present in the left lung fi eld not substantially different from comparison. Right lung field shows significant clearing of the a irspace disease seen on the prior study. Cardiac silhouette remains enlarged. Central vasculature is prominent. Body habitus and shallow insp iration accentuate all chest findings. No measurable pleural effusion and no pneumothorax. No acute b guido abnormality seen. No acute aortic findings suspected. IMPRESSION: Partial clearing of the right lung field airspace disease since October 18 imaging. Left lung field has not changed significantly.
--- NOTE | 2020-10-22 17:23 | P.PN ---
Subjective Date of Service: 10/22/20 Chief Complaint: covid pneumonia, bilateral PE No change from yesterday. Patient is BiPAP dependent. Physical Examination - Vital Signs Temperature: 97.6 F Blood Pressure: 115/62 Pulse: 59 Respirations: 20 Pulse Ox (%): 92 - Physical Exam General: Alert, In no apparent distress HEENT: Other (BiPAP) Respiratory: Other (Nonlabored breathing) Cardiovascular: No edema, Regular rate/rhythm, Normal S1 S2 Gastrointestinal: Soft and benign, Non-distended Musculoskeletal: No swelling Integumentary: No rashes Neurological: Normal strength at 5/5 x4 extr Assessment And Plan - Current Problems (Diagnosis) (1) Acute respiratory failure with hypoxia Current Visit: Yes Status: Acute (2) Pneumonia due to COVID-19 virus Current Visit: Yes Status: Acute (3) Pulmonary embolism Current Visit: Yes Status: Acute Qualifiers: Pulmonary embolism type: unspecified Chronicity: acute Acute cor pulmonale presence: unspecified Qualified Code(s): I26.99 - Other pulmonary embolism without acute cor pulmonale (4) Hyperglycemia, drug-induced Current Visit: Yes Status: Acute - Plan Continue BiPAP. High-flow oxygen p.r.n. Continue IV Solu-Medrol. Status post Ivermectin. Status post convalescent plasma. Patient started on Remdesivir. Continue Eliquis regimen for PE. Pulmonary his following. Insulin sliding scale for steroid induced hyperglycemia.
[2020-10-22] MEDS: BENZONATATE 100 MG CAP PO PRN (21:40)
[2020-10-23 04:45] LABS: Absolute Lymphocytes (CBC) 0.5 K/uL (0.7-4.9); Basophils % 0.2 % (0-1.3); Hematocrit 40.9 % (39.6-49.0); Lymphocytes % 3.8 % (15.3-44.8); MPV 9.7 fL (7.6-11.3); RBC Red Blood Cell Count 4.47 M/uL (4.33-5.43)
[2020-10-23 05:03] LABS: Albumin 2.3 g/dL (3.4-5.0); Bilirubin Direct 0.2 mg/dL (0-0.2); Bilirubin Total 0.6 mg/dL (0.2-1.0); Potassium 5.5 mmol/L (3.5-5.1); Protein, Total 6.5 g/dL (6.4-8.2)
[2020-10-23] MEDS: BENZONATATE 100 MG CAP PO PRN (05:17)
[2020-10-23 05:50] LABS: Blood Morphology Comment NOT SEEN (NOT SEEN); Platelet Estimate ADEQ
--- NOTE | 2020-10-23 08:53 | RAD REPORT ---
EXAM DESCRIPTION: RAD - Chest Single View - 10/23/2020 6:48 am CLINICAL HISTORY: Respiratory failure COMPARISON: October 22October 18 TECHNIQUE: AP portable chest image was obtained 10/23/2020 6:48 am . FINDINGS: Lung volumes are low. Bilateral airspace opacification is present showing only mild improv ement when comparing back to October 18 imaging. Heart and vasculature are normal. No measurable pleural effusion and no pneumothorax. No acute bony abnormality seen. No acute aortic findings suspected. IMPRESSION: Extensive bilateral airspace opacification from edema or infiltrate. There has been only mild clearing in the mid and upper lung dunbar when comparing back to October 18.
[2020-10-23] MEDS: METHYLPREDNISOLONE 40 MG INJ IV SCH ×2 (08:57→20:15)
[2020-10-23] MEDS: FAMOTIDINE 20 MG TAB PO SCH ×2 (09:00→20:16)
[2020-10-23] MEDS: INSULIN -REGULAR HUMAN 50 UNIT/0.5 ML ML SQ SCH ×4 (09:00→20:34)
[2020-10-23] MEDS: VITAMIN D 1000 UNIT TAB PO SCH (09:01)
[2020-10-23] MEDS: ASCORBIC ACID 500 MG TABLET PO SCH ×4 (09:01→20:16)
[2020-10-23] MEDS: ZINC SULFATE 220 MG CAP PO SCH (09:01)
[2020-10-23] MEDS: THIAMINE 200 MG/2 ML INJ IVP SCH (09:02)
[2020-10-23] MEDS: Remdesivir 100 MG in NA CHLORIDE 0.9% 250 ML IV SCH (09:34)
[2020-10-23 09:44] LABS: Potassium 4.8 mmol/L (3.5-5.1)
[2020-10-23] MEDS: APIXABAN 5 MG TABLET PO SCH ×2 (09:49→20:17)
--- NOTE | 2020-10-23 14:16 | P.PN ---
Subjective Date of Service: 10/23/20 Chief Complaint: covid pneumonia, bilateral PE Patient alternating between BiPAP and high-flow oxygen Physical Examination - Vital Signs Temperature: 97.7 F Blood Pressure: 136/67 Pulse: 60 Respirations: 25 Pulse Ox (%): 85 - Physical Exam General: Alert, In no apparent distress Respiratory: Other (Nonlabored breathing) Cardiovascular: No edema, Regular rate/rhythm, Normal S1 S2 Gastrointestinal: Soft and benign, Non-distended Musculoskeletal: No swelling Integumentary: No rashes Neurological: Normal strength at 5/5 x4 extr Assessment And Plan - Current Problems (Diagnosis) (1) Acute respiratory failure with hypoxia Current Visit: Yes Status: Acute (2) Pneumonia due to COVID-19 virus Current Visit: Yes Status: Acute (3) Pulmonary embolism Current Visit: Yes Status: Acute Qualifiers: Pulmonary embolism type: unspecified Chronicity: acute Acute cor pulmonale presence: unspecified Qualified Code(s): I26.99 - Other pulmonary embolism without acute cor pulmonale (4) Hyperglycemia, drug-induced Current Visit: Yes Status: Acute - Plan Continue BiPAP. High-flow oxygen p.r.n. Continue IV Solu-Medrol. Status post Ivermectin. Status post convalescent plasma. Patient started on Remdesivir. Continue Eliquis regimen for PE. Pulmonary his following. Insulin sliding scale for steroid induced hyperglycemia.
[2020-10-24 04:30] LABS: Albumin 2.4 g/dL (3.4-5.0); Bilirubin Direct 0.2 mg/dL (0-0.2); Bilirubin Total 0.7 mg/dL (0.2-1.0); C-Reactive Protein 70.2 mg/L (<3.00); Protein, Total 6.7 g/dL (6.4-8.2)
[2020-10-24] MEDS: METHYLPREDNISOLONE 40 MG INJ IV SCH ×2 (09:00→20:05)
[2020-10-24] MEDS: FAMOTIDINE 20 MG TAB PO SCH ×2 (09:00→20:05)
[2020-10-24] MEDS: THIAMINE 200 MG/2 ML INJ IVP SCH (09:00)
[2020-10-24] MEDS ORDERED: ASPIRIN EC 81 MG TAB PO SCH (09:00)
--- NOTE | 2020-10-24 09:59 | P.PN ---
Subjective Date of Service: 10/24/20 Chief Complaint: covid pneumonia, bilateral PE No change not doing well requiring high concentrations of oxygen Physical Examination - Vital Signs Temperature: 97.9 F Blood Pressure: 116/73 Pulse: 65 Respirations: 19 Pulse Ox (%): 90 - Studies Microbiology Data (last 24 hrs): 10/18/20 20:40 Blood - Blood Aerobic Blood Culture - Final No growth in 5 days. 10/18/20 20:40 Blood - Blood Anaerobic Blood Culture - Final No growth in 5 days. 10/18/20 20:55 Blood - Blood Aerobic Blood Culture - Final No growth in 5 days. 10/18/20 20:55 Blood - Blood Anaerobic Blood Culture - Final No growth in 5 days. Assessment & Plan - Problems (Diagnosis) (1) Pneumonia due to COVID-19 virus Current Visit: Yes Status: Acute Plan: Respiratory failure no change white count mildly elevated (2) Pulmonary embolism Current Visit: Yes Status: Acute Plan: Patient is fully anti coagulated continue with Eliquis full-dose Qualifiers: Pulmonary embolism type: unspecified Chronicity: acute Acute cor pulmonale presence: unspecified Qualified Code(s): I26.99 - Other pulmonary embolism without acute cor pulmonale
[2020-10-24] MEDS: ZINC SULFATE 220 MG CAP PO SCH (10:21)
[2020-10-24] MEDS: ASCORBIC ACID 500 MG TABLET PO SCH ×4 (10:22→20:05)
[2020-10-24] MEDS: Remdesivir 100 MG in NA CHLORIDE 0.9% 250 ML IV SCH (10:22)
[2020-10-24] MEDS: INSULIN -REGULAR HUMAN 50 UNIT/0.5 ML ML SQ SCH ×4 (10:23→20:44)
[2020-10-24] MEDS: APIXABAN 5 MG TABLET PO SCH ×2 (10:23→20:05)
[2020-10-24] MEDS: VITAMIN D 1000 UNIT TAB PO SCH (10:26)
--- NOTE | 2020-10-24 15:45 | P.PN ---
Subjective Date of Service: 10/24/20 Chief Complaint: covid pneumonia, bilateral PE Patient alternating between BiPAP and high-flow oxygen. No major changes from yesterday. Physical Examination - Vital Signs Temperature: 97.5 F Blood Pressure: 104/55 Pulse: 58 Respirations: 31 Pulse Ox (%): 87 - Physical Exam General: Alert, In no apparent distress HEENT: Other (BiPAP) Respiratory: Other (Nonlabored breathing) Cardiovascular: No edema, Regular rate/rhythm, Normal S1 S2 Gastrointestinal: Soft and benign, Non-distended Musculoskeletal: No swelling Integumentary: No rashes Neurological: Normal strength at 5/5 x4 extr - Studies Microbiology Data (last 24 hrs): 10/18/20 20:40 Blood - Blood Aerobic Blood Culture - Final No growth in 5 days. 10/18/20 20:40 Blood - Blood Anaerobic Blood Culture - Final No growth in 5 days. 10/18/20 20:55 Blood - Blood Aerobic Blood Culture - Final No growth in 5 days. 10/18/20 20:55 Blood - Blood Anaerobic Blood Culture - Final No growth in 5 days. Assessment And Plan - Current Problems (Diagnosis) (1) Acute respiratory failure with hypoxia Current Visit: Yes Status: Acute (2) Pneumonia due to COVID-19 virus Current Visit: Yes Status: Acute (3) Pulmonary embolism Current Visit: Yes Status: Acute Qualifiers: Pulmonary embolism type: unspecified Chronicity: acute Acute cor pulmonale presence: unspecified Qualified Code(s): I26.99 - Other pulmonary embolism without acute cor pulmonale (4) Hyperglycemia, drug-induced Current Visit: Yes Status: Acute - Plan Continue BiPAP. High-flow oxygen p.r.n. Continue IV Solu-Medrol. Status post Ivermectin. Status post convalescent plasma. Patient is on Remdesivir. Continue Eliquis regimen for PE. Pulmonary his following. Insulin sliding scale for steroid induced hyperglycemia.
[2020-10-25 04:21] LABS: Albumin 2.3 g/dL (3.4-5.0); Bilirubin Direct 0.2 mg/dL (0-0.2); Bilirubin Total 0.8 mg/dL (0.2-1.0); C-Reactive Protein 79.1 mg/L (<3.00); Protein, Total 6.4 g/dL (6.4-8.2)
[2020-10-25] MEDS: Remdesivir 100 MG in NA CHLORIDE 0.9% 250 ML IV SCH (08:41)
[2020-10-25] MEDS: INSULIN -REGULAR HUMAN 50 UNIT/0.5 ML ML SQ SCH ×4 (08:43→20:36)
[2020-10-25] MEDS: VITAMIN D 1000 UNIT TAB PO SCH (08:43)
[2020-10-25] MEDS: ASPIRIN 81 MG CHEWABLE TABLET PO SCH (08:43)
[2020-10-25] MEDS: METHYLPREDNISOLONE 40 MG INJ IV SCH (08:44)
[2020-10-25] MEDS: THIAMINE 200 MG/2 ML INJ IVP SCH (08:44)
[2020-10-25] MEDS: APIXABAN 5 MG TABLET PO SCH ×2 (08:44→20:53)
[2020-10-25] MEDS: ASCORBIC ACID 500 MG TABLET PO SCH ×4 (08:44→20:52)
[2020-10-25] MEDS: ZINC SULFATE 220 MG CAP PO SCH (08:44)
[2020-10-25] MEDS: FAMOTIDINE 20 MG TAB PO SCH ×2 (09:08→20:52)
[2020-10-25] MEDS: BENZONATATE 100 MG CAP PO PRN ×2 (11:39→23:14)
[2020-10-25] MEDS ORDERED: LORazepam 2 MG/ML VIAL IV ONE (12:14)
--- NOTE | 2020-10-25 12:26 | P.PN ---
Subjective Date of Service: 10/25/20 Chief Complaint: covid pneumonia, bilateral PE Patient is stable on the BiPAP. No major changes from yesterday. Physical Examination - Vital Signs Temperature: 97.3 F Blood Pressure: 113/77 Pulse: 77 Respirations: 22 Pulse Ox (%): 94 - Physical Exam General: Alert, In no apparent distress Respiratory: Other (Nonlabored breathing) Cardiovascular: No edema, Regular rate/rhythm, Normal S1 S2 Gastrointestinal: Soft and benign, Non-distended Musculoskeletal: No swelling Integumentary: No rashes Neurological: Normal strength at 5/5 x4 extr Assessment And Plan - Current Problems (Diagnosis) (1) Acute respiratory failure with hypoxia Current Visit: Yes Status: Acute (2) Pneumonia due to COVID-19 virus Current Visit: Yes Status: Acute (3) Pulmonary embolism Current Visit: Yes Status: Acute Qualifiers: Pulmonary embolism type: unspecified Chronicity: acute Acute cor pulmonale presence: unspecified Qualified Code(s): I26.99 - Other pulmonary embolism without acute cor pulmonale (4) Hyperglycemia, drug-induced Current Visit: Yes Status: Acute - Plan Continue BiPAP. High-flow oxygen p.r.n. On IV Solu-Medrol. Status post Ivermectin. Status post convalescent plasma. He completed Remdesivir therapy. Continue Eliquis regimen for PE. Pulmonary his following. Insulin sliding scale for steroid induced hyperglycemia. Ativan p.r.n. for anxiety. Physician Review Additional Text: Bilateral pulmonary embolism Covid 19 pneumonia Hyperglycemia-steroid induced Acute respiratory failure-requiring BiPAP plan -status post ivermectin and convalescent plasma -Continue IV steroids -Considered does Remdesivir - will follow with pulmonary -still high 02 requiriement -c/w Eliquis for anticoagulation -start PPI for GI prophylaxis. Continue insulin sliding scale
[2020-10-25] MEDS: MELATONIN 5 MG TABLET PO PRN (23:14)
[2020-10-26] MEDS: LORazepam 2 MG/ML VIAL IV PRN ×2 (00:32→15:20)
[2020-10-26 04:08] LABS: Absolute Lymphocytes (CBC) 0.8 K/uL (0.7-4.9); Basophils % 0.1 % (0-1.3); Hematocrit 46.1 % (39.6-49.0); MPV 10.4 fL (7.6-11.3); RBC Red Blood Cell Count 5.07 M/uL (4.33-5.43)
[2020-10-26 04:49] LABS: Albumin 2.4 g/dL (3.4-5.0); Bilirubin Total 0.9 mg/dL (0.2-1.0); C-Reactive Protein 94.9 mg/L (<3.00); Ferritin 2406.6 ng/mL (26-388); Magnesium 2.6 mg/dL (1.8-2.4); Potassium 5.4 mmol/L (3.5-5.1); Protein, Total 6.8 g/dL (6.4-8.2)
--- NOTE | 2020-10-26 08:31 | RAD REPORT ---
EXAM DESCRIPTION: RAD - Chest Single View - 10/26/2020 5:46 am CLINICAL HISTORY: COVID, hypoxia Chest pain. COMPARISON: Chest Single View dated 10/23/2020; Chest Single View dated 10/22/2020; Chest Single View d ated 10/18/2020 FINDINGS: Portable technique limits examination quality. Extensive bilateral pulmonary opacities are again noted, essentially stable since the comparative tho dy. The heart is upper limit normal in size. No displaced fractures. IMPRESSION: Stable chest since 10/23/2020.
[2020-10-26] MEDS: MORPHINE 2 MG/ML SYR IV PRN ×2 (08:44→19:58)
[2020-10-26] MEDS: THIAMINE 200 MG/2 ML INJ IVP SCH (08:46)
[2020-10-26] MEDS: INSULIN -REGULAR HUMAN 50 UNIT/0.5 ML ML SQ SCH ×4 (08:46→21:00)
--- NOTE | 2020-10-26 09:22 | RAD REPORT ---
EXAM DESCRIPTION: RAD - Chest Single View - 10/26/2020 9:13 am CLINICAL HISTORY: chest pain Chest pain. COMPARISON: Chest Single View dated 10/26/2020; Chest Single View dated 10/23/2020; Chest Single View dated 10/22/2020; Chest Single View dated 10/18/2020 FINDINGS: Portable technique limits examination quality. Extensive bilateral pulmonary opacities are slightly worse compared to 10/26/2020 earlier study. The heart is mildly enlarged in size. No displaced fractures. IMPRESSION: Slight worsening in lung aeration seen since comparative study.
[2020-10-26] MEDS: ZINC SULFATE 220 MG CAP PO SCH (09:57)
[2020-10-26] MEDS: ASPIRIN 81 MG CHEWABLE TABLET PO SCH (09:57)
[2020-10-26] MEDS: FAMOTIDINE 20 MG TAB PO SCH ×2 (09:57→19:56)
[2020-10-26] MEDS: BENZONATATE 100 MG CAP PO PRN ×2 (09:57→19:56)
[2020-10-26] MEDS: APIXABAN 5 MG TABLET PO SCH ×2 (09:57→19:55)
[2020-10-26] MEDS: VITAMIN D 1000 UNIT TAB PO SCH (09:57)
[2020-10-26] MEDS: ASCORBIC ACID 500 MG TABLET PO SCH ×4 (09:58→19:56)
[2020-10-26 11:13] LABS: Blood O2 Saturation 91.2 % (92-98.5)
[2020-10-26 11:14] LABS: Blood Gas Oxyhemoglobin 89.3 % (94-97)
--- NOTE | 2020-10-26 12:42 | P.PN ---
Subjective Date of Service: 10/26/20 Chief Complaint: covid pneumonia, bilateral PE Subjective: Other (still requiring high levels of oxygen, reviewed code status, remains DNI. reports some R back pain over R scapula, no chest pain/pressure) Review of Systems 10-point ROS is otherwise unremarkable Physical Examination - Vital Signs Temperature: 97.8 F Blood Pressure: 105/73 Pulse: 90 Respirations: 32 Pulse Ox (%): 89 Assessment & Plan Physician Review Additional Text: Physical Exam General: Alert, mild distress, appears fatigued Respiratory: mildly labored respirations on BIPAP, FiO2: 100% Cardiovascular: Regular rate/rhythm, Normal S1 S2 Gastrointestinal: Soft and benign, Non-distended Musculoskeletal: No swelling Integumentary: No rashes Neurological: AAOx3, normal speech/affect Problem List Acute respiratory failure with hypoxia secondary to COVID-19 pneumonia acute bilateral Pulmonary embolism Hyperglycemia, steroid induced -continue BIPAP, HFNC as tolerated -continue solumedrol, vitamin supplementation, s/p Ivermectin, s/p convalescent plasma, s/p remdesevir -continue eliquis - has bilateral PEs -pulm consulted / following -continue insulin sliding scale, titrate as needed -significantly elevated inflammatory markers -repeat CXR, EKG, trop ordered this AM for worsening back / chest pain -CXR with slight worsening of opacities, no pneumo -EKg without ischemic changes, trop slightly elevated - will trend, likely due to heart strain in setting of b/l PE and covid pneumonia VTE: eliquis Code: DNI Dispo: guarded prognosis, patient is ill and requiring high levels of oxygen Time Spent Managing Pts Care (In Minutes): 45
--- NOTE | 2020-10-26 16:33 | EKG ---
Test Date: 2020-10-26 Test Time: 09:24:13 Access Analyst: SE MEASUREMENT RESULTS: Intervals: Rate: 83 GA: 142 QRSD: 76 QT: 398 QTc: 467 Tribune: P: 53 GA: 142 QRS: -27 T: 35 INTERPRETIVE STATEMENTS: Normal sinus rhythm Junctional ST depression, probably normal Borderline ECG Compared to ECG 10/18/2020 20:25:26 ST (T wave) deviation now present Left ventricular hypertrophy no longer present Electronically Signed On 10-26-20 16:32:43 CDT by Sunday Topete
[2020-10-26] MEDS: METHYLPREDNISOLONE 40 MG INJ IV SCH (22:55)
[2020-10-27] MEDS: LORazepam 2 MG/ML VIAL IV PRN ×2 (01:44→13:45)
[2020-10-27] MEDS: BENZONATATE 100 MG CAP PO PRN ×2 (03:30→16:58)
[2020-10-27 04:08] LABS: Absolute Lymphocytes (CBC) 0.6 K/uL (0.7-4.9); Hematocrit 44.2 % (39.6-49.0); Lymphocytes % 3.2 % (15.3-44.8); RBC Red Blood Cell Count 4.82 M/uL (4.33-5.43)
[2020-10-27 05:17] LABS: Ferritin 3938.2 ng/mL (26-388); Potassium 5.6 mmol/L (3.5-5.1)
[2020-10-27 05:31] LABS: Blood Morphology Comment NOT SEEN (NOT SEEN); Platelet Estimate DECR
[2020-10-27] MEDS ORDERED: Levofloxacin 750mg IV 750 MG/150 ML BAG IV SCH (07:00)
[2020-10-27] MEDS: INSULIN -REGULAR HUMAN 50 UNIT/0.5 ML ML SQ SCH ×5 (07:30→21:16)
--- NOTE | 2020-10-27 07:41 | P.CNS ---
Date of Consult: 10/27/20 Reason for Consult: DEBBI Requesting Physician: [place] Chief Complaint: covid pneumonia, bilateral PE History of Present Illness: Mr. Last is a 50 yo male with no past medical history here today for 3 weeks of cough and fatigue, found to be COVID+ today. He reports anorexia, chills, diarrhea for 1 week, and SOB beginning today. He denies wheezing, night sweats, nausea, and vomiting. D Dimer 3680. CTPE showed bilateral pulmonary embolic disease, clot burden is greatest on the right. No saddle embolus. Possible early right-sided heart strain. Extensive multifocal infiltrates bilaterally, imaging features can be seen with viral pneumonia. 20:42 This 50 yrs old Male presents to ER via EMS with complaints of Breathing pm1 Difficulty. 20:42 The patient has shortness of breath at rest. Onset: The symptoms/episode began/occurred pm1 Onset of cough and congestion about 2 weeks ago. SOB onset today. Dur ation: The symptoms are continuous. The patient's shortness of breath is aggravated by light activity, is alleviated by nothing. 20:42 Associated signs and symptoms: Pertinent positives: fever, Cough, Pertinent negatives: pm1 chest pain, nausea, vomiting, Diarrhea. Severity of symptoms: in the [facility] the symptoms are worse. The patient has not experienced similar symptoms in the past. The patient has not recently seen a physician, and does not have an established primary care provider. Patient's family members positive for covid. Allergies No Known Allergies Allergy (Unverified 10/19/20 01:02) Home medications list reviewed: Yes Home Medications: NK [No Home Meds] 10/19/20 - Past Medical/Surgical History Diabetic: No - Family History Mother Medical History: Diabetes Father Medical History: Diabetes - Social History Alcohol use: No CD- Drugs: No Caffeine use: Yes Place of Residence: Home Review of Systems 10-point ROS is otherwise unremarkable General: Weakness, Malaise Respiratory: Shortness of Breath, SOB with Excertion Neurological: Weakness Physical Examination Temp Pulse Resp BP Pulse Ox 97.2 F 88 30 H 111/65 90 L 10/27/20 04:00 10/27/20 04:00 10/27/20 04:00 10/27/20 04:00 10/27/20 04:00 General: Oriented x3, Cooperative HEENT: Atraumatic Neck: Supple Respiratory: Diminished Cardiovascular: No edema, Regular rate/rhythm Gastrointestinal: Soft and benign, Non-distended Musculoskeletal: No clubbing, No contractures Integumentary: No rashes, No cyanosis Neurological: Normal speech Blood work reviewed in the chart. Imagings Data: EXAM DESCRIPTION: RAD - Chest Single View - 10/26/2020 9:13 am CLINICAL HISTORY: chest pain Chest pain. COMPARISON: Chest Single View dated 10/26/2020; Chest Single View dated 10/23/2020; Chest Single View dated 10/22/2020; Chest Single View dated 10/18/2020 FINDINGS: Portable technique limits examination quality. Extensive bilateral pulmonary opacities are slightly worse compared to 10/26/2020 earlier study. The heart is mildly enlarged in size. No displaced fractures. IMPRESSION: Slight worsening in lung aeration seen since comparative study. Conclusions/Impression: A/P DBEBI likely hypovolemia -Start gentle IVF 1/2NS Hyperkalemia -Kayexalate 15g X1 dose -2K diet DM II with Hyperglycemia -Change to moderate RISS Moderate malnutrition -Encourage nutrition COVID-19 Acute hypoxic respiratory failure -Bipap as ordered -Continue Vitamin C and Zinc Case reviewed with Dr. Forde. Greater than 30min patient care.
[2020-10-27] MEDS ORDERED: SOD POLYSTYREN SUL 15 GM/60 ML UCUP PO ONE (07:47)
[2020-10-27] MEDS ORDERED: NACHLORIDE 0.45% 1,000 ML IV SCH (08:00)
[2020-10-27] MEDS: NACHLORIDE 0.45% 1,000 ML IV SCH ×2 (08:12→22:25)
[2020-10-27] MEDS: MORPHINE 2 MG/ML SYR IV PRN (08:13)
[2020-10-27] MEDS: VITAMIN D 1000 UNIT TAB PO SCH (08:14)
[2020-10-27] MEDS: ZINC SULFATE 220 MG CAP PO SCH (08:17)
[2020-10-27] MEDS: ASCORBIC ACID 500 MG TABLET PO SCH ×4 (08:17→21:17)
[2020-10-27] MEDS: METHYLPREDNISOLONE 40 MG INJ IV SCH ×2 (08:17→21:17)
[2020-10-27] MEDS: ASPIRIN 81 MG CHEWABLE TABLET PO SCH (08:18)
[2020-10-27] MEDS: THIAMINE 200 MG/2 ML INJ IVP SCH (08:18)
[2020-10-27] MEDS: APIXABAN 5 MG TABLET PO SCH ×2 (08:18→21:17)
[2020-10-27] MEDS: FAMOTIDINE 20 MG TAB PO SCH ×2 (08:18→21:17)
[2020-10-27 11:20] LABS: Urine Appearance CLEAR (Clear); Urine Bilirubin NEGATIVE (Negative); Urine Blood NEGATIVE (Negative); Urine Color YELLOW (Yellow); Urine Glucose 3+ (Negative); Urine Protein NEGATIVE (Negative); Urine Specific Gravity >=1.030 (1.005-1.030); Urine Urobilinogen 0.2 mg/dL (0.2-1.0)
[2020-10-27 11:21] LABS: Urine Microscopic Reflex NO UMIC
[2020-10-27] MEDS ORDERED: IVERMECTIN 3 MG TABLET PO ONE (12:44)
--- NOTE | 2020-10-27 12:45 | P.PN ---
Subjective Date of Service: 10/27/20 Chief Complaint: covid pneumonia, bilateral PE the patient's oxygen saturations of better when is sitting up a he still requiring high concentrations of oxygen presently is also hyperkalemia ache very anxious feeling depressed Review of Systems General: Weakness Respiratory: Shortness of Breath Physical Examination - Vital Signs Temperature: 97.0 F Blood Pressure: 104/69 Pulse: 84 Respirations: 28 Pulse Ox (%): 92 Assessment & Plan - Problems (Diagnosis) (1) Pneumonia due to COVID-19 virus Current Visit: Yes Status: Acute Plan: respiratory failure is still on 100% FiO2 patient is hyperkalemia renal function worse agree with IV fluids blood sugar elevated ferritin level is above 3000 chest x-ray still shows significant bilateral interstitial changes add Remeron repeat dose of ivermectin (2) Pulmonary embolism Current Visit: Yes Status: Acute Plan: Patient is fully anti coagulated Qualifiers: Pulmonary embolism type: unspecified Chronicity: acute Acute cor pulmonale presence: unspecified Qualified Code(s): I26.99 - Other pulmonary embolism without acute cor pulmonale
--- NOTE | 2020-10-27 14:37 | P.PN ---
Subjective Date of Service: 10/27/20 Chief Complaint: covid pneumonia, bilateral PE Subjective: No new changes (Reports feels about the same as yesterday, nursing staff report he was taken BiPAP mask off overnight to try and drink water, at times was trended drink throught a straw while bIPAP mask in place) Review of Systems 10-point ROS is otherwise unremarkable Physical Examination - Vital Signs Temperature: 97.0 F Blood Pressure: 104/69 Pulse: 84 Respirations: 28 Pulse Ox (%): 92 Assessment & Plan Physician Review Additional Text: Physical Exam General: Alert, mild distress, fatigued Respiratory: labored respirations on BIPAP, FiO2: 100% Cardiovascular: Regular rate/rhythm, Normal S1 S2 Gastrointestinal: Soft and benign, Non-distended Musculoskeletal: No swelling Integumentary: No rashes Neurological: AAOx3, normal speech/affect Problem List Acute respiratory failure with hypoxia secondary to COVID-19 pneumonia acute bilateral Pulmonary embolism Hyperglycemia, steroid induced -continue BIPAP, HFNC as tolerated -continue solumedrol, vitamin supplementation, s/p Ivermectin, s/p convalescent plasma, s/p remdesevir -continue eliquis - has bilateral PEs -pulm consulted / following -continue insulin sliding scale, titrate as needed, hyperglycemic - steroid induced, add 70/30 -significantly elevated inflammatory markers, worsening -advised against trying to drink while BIPAP mask in place, discussed dobhoff, but patient declined at this time -start IV rocephin to cover for bacterial superinfection, consider better anaerobic coverage if worsens, concern for aspiration if pt continues to drink via straw with bipap mask on VTE: eliquis Code: DNI Dispo: guarded prognosis, patient is ill and requiring high levels of oxygen Time Spent Managing Pts Care (In Minutes): 35
[2020-10-27] MEDS ORDERED: CEFTRIAXONE/SWI 1gm 1 GM/10 ML SYR IVP SCH (15:00)
[2020-10-27] MEDS ORDERED: INSULIN 70/30 100 UNITS/ML SQ SCH (16:30)
[2020-10-27] MEDS: INSULIN 70/30 100 UNITS/ML SQ SCH (16:49)
[2020-10-27] MEDS: MIRTAZAPINE 15 MG TAB PO SCH (21:17)
[2020-10-28 03:59] LABS: Absolute Lymphocytes (CBC) 0.7 K/uL (0.7-4.9); Basophils % 0.2 % (0-1.3); Hematocrit 41.2 % (39.6-49.0); MPV 10.7 fL (7.6-11.3); RBC Red Blood Cell Count 4.56 M/uL (4.33-5.43)
[2020-10-28 04:26] LABS: Albumin 2.2 g/dL (3.4-5.0); Bilirubin Total 0.8 mg/dL (0.2-1.0); Ferritin 4153.9 ng/mL (26-388); Magnesium 3.1 mg/dL (1.8-2.4); Potassium 4.8 mmol/L (3.5-5.1); Protein, Total 6.7 g/dL (6.4-8.2); Uric Acid 7.4 mg/dL (3.5-7.2)
[2020-10-28 05:04] LABS: Blood Morphology Comment NOT SEEN (NOT SEEN); Platelet Estimate DECR
[2020-10-28] MEDS: INSULIN -REGULAR HUMAN 50 UNIT/0.5 ML ML SQ SCH ×4 (07:30→22:05)
[2020-10-28] MEDS ORDERED: PIPER/TAZO/NS 3.375gm 3.375 GM/100 ML BAG IVPB SCH (09:00)
[2020-10-28] MEDS: VITAMIN D 1000 UNIT TAB PO SCH (09:25)
[2020-10-28] MEDS: APIXABAN 5 MG TABLET PO SCH ×2 (09:26→20:42)
[2020-10-28] MEDS: ASPIRIN 81 MG CHEWABLE TABLET PO SCH (09:26)
[2020-10-28] MEDS: ASCORBIC ACID 500 MG TABLET PO SCH ×4 (09:26→20:41)
[2020-10-28] MEDS: FAMOTIDINE 20 MG TAB PO SCH ×2 (09:26→20:42)
[2020-10-28] MEDS: ZINC SULFATE 220 MG CAP PO SCH (09:26)
[2020-10-28] MEDS: METHYLPREDNISOLONE 40 MG INJ IV SCH ×2 (09:26→20:42)
[2020-10-28] MEDS: INSULIN 70/30 100 UNITS/ML SQ SCH ×2 (09:27→16:40)
[2020-10-28] MEDS: NACHLORIDE 0.45% 1,000 ML IV SCH (10:11)
[2020-10-28] MEDS: THIAMINE 200 MG/2 ML INJ IVP SCH (10:12)
[2020-10-28] MEDS: BENZONATATE 100 MG CAP PO PRN ×2 (12:37→18:14)
--- NOTE | 2020-10-28 16:18 | P.PN ---
Subjective Date of Service: 10/28/20 Chief Complaint: covid pneumonia, bilateral PE Subjective: No new changes (feels the same as yesterday, more alert today, sitting up at bedside, willing to try and eat more today, does not want dobhoff placed) Review of Systems 10-point ROS is otherwise unremarkable Physical Examination - Vital Signs Temperature: 97.1 F Blood Pressure: 135/68 Pulse: 82 Respirations: 36 Pulse Ox (%): 96 Assessment & Plan Physician Review Additional Text: Physical Exam General: Alert, mild distress, fatigued Respiratory: labored respirations on BIPAP, FiO2: 100% Cardiovascular: Regular rate/rhythm, Normal S1 S2 Gastrointestinal: Soft and benign, Non-distended Ext: trace-1+ edema bilateral lower extremities Integumentary: No rash Neurological: AAOx3, normal speech, depressed affect Problem List Acute respiratory failure with hypoxia secondary to COVID-19 pneumonia acute bilateral Pulmonary embolism Hyperglycemia, steroid induced -continue BIPAP, HFNC as tolerated -continue solumedrol, vitamin supplementation, s/p Ivermectin, s/p convalescent plasma, s/p remdesevir -continue eliquis - has bilateral PEs -pulm consulted / following -continue insulin sliding scale, hyperglycemic - steroid induced, titrate 70/30 -significantly elevated inflammatory markers, worsening -advised against trying to drink while BIPAP mask in place, discussed dobhoff, patient still declines -started IV rocephin to cover for bacterial superinfection on 10/27, concern for aspiration with patient drinking throught straw with bipap mask on (on 10/27) -switched to zosyn on 10/28, however after discussion with pulm, will continue with rocephin for now -repeat CXR tomorrow VTE: eliquis Code: DNI Dispo: guarded prognosis, patient is ill and requiring high levels of oxygen Time Spent Managing Pts Care (In Minutes): 35
[2020-10-28] MEDS: MIRTAZAPINE 15 MG TAB PO SCH (20:41)
[2020-10-28] MEDS: ENSURE HIGH PROTEIN 237 ML CAN PO SCH (20:46)
--- NOTE | 2020-10-28 20:59 | P.PN ---
Date of Service: 10/28/20 Vital Signs Temp Pulse Resp BP Pulse Ox 97.1 F 82 36 H 135/68 96 10/28/20 16:18 10/28/20 16:18 10/28/20 16:18 10/28/20 16:18 10/28/20 16:18 Medications Acetaminophen (Acetaminophen 500 Mg Tab) 500 mg PO Q4HP PRN PRN Reason: Pain scale 2-4 (Mild) Albuterol Sulfate (Albuterol 2.5 Mg/3 Ml Neb Marija) 2.5 mg NEB [id number] PRN PRN Reason: SHORTNESS OF BREATH Apixaban (Apixaban 5 Mg Tablet) 5 mg PO BID [facility] Last Admin: 10/28/20 20:42 Dose: 5 mg Documented by: Ascorbic Acid (Ascorbic Acid 500 Mg Tablet) 500 mg PO QID [facility] Last Admin: 10/28/20 20:41 Dose: 500 mg Documented by: Aspirin (Aspirin 81 Mg Chewable Tablet) 162 mg PO DAILY [facility] Last Admin: 10/28/20 09:26 Dose: 162 mg Documented by: Benzonatate (Benzonatate 100 Mg Cap) 100 mg PO TID PRN PRN Reason: COUGH Last Admin: 10/28/20 18:14 Dose: 100 mg Documented by: Cholecalciferol (Vitamin D 1000 Unit Tab) 4,000 unit PO DAILY [facility] Last Admin: 10/28/20 09:25 Dose: 4,000 unit Documented by: Famotidine (Famotidine 20 Mg Tab) 40 mg PO BID [facility]; Protocol Last Admin: 10/28/20 20:42 Dose: 40 mg Documented by: Ceftriaxone Sodium/Sodium Chloride (Rocephin 1 Gm/10 Ml Swi Ivp) 1 gm in 10 mls @ 20 mls/hr IV DAILY [facility]; Protocol Insulin Human Isoph/Insulin Regular (Insulin 70/30 100 Units/Ml) 15 unit SQ BIDAC [facility] Last Admin: 10/28/20 16:40 Dose: 15 unit Documented by: Insulin Human Regular (Insulin -Regular Human 50 Unit/0.5 Ml Ml) 0 unit SQ ACHS [facility]; Protocol Last Admin: 10/28/20 16:40 Dose: 8 unit Documented by: Lorazepam (Lorazepam 2 Mg/Ml Vial) 0.5 mg IV Q6H PRN PRN Reason: ANXIETY Last Admin: 10/27/20 13:45 Dose: 0.5 mg Documented by: Melatonin (Melatonin 5 Mg Tablet) 10 mg PO BEDTIME PRN PRN PRN Reason: INSOMNIA Last Admin: 10/25/20 23:14 Dose: 10 mg Documented by: Methylprednisolone Sodium Succinate (Methylprednisolone 40 Mg Inj) 80 mg IV BID [facility] Last Admin: 10/28/20 20:42 Dose: 80 mg Documented by: Mirtazapine (Mirtazapine 15 Mg Tab) 15 mg PO BEDTIME [facility] Last Admin: 10/28/20 20:41 Dose: 15 mg Documented by: Morphine Sulfate (Morphine 2 Mg/Ml Syr) 2 mg IV Q4H PRN PRN Reason: Pain scale 5-7 (Moderate) Last Admin: 10/27/20 08:13 Dose: 2 mg Documented by: Nutritional Formula (Ensure High Protein 237 Ml Can) 237 ml PO BID [facility] Last Admin: 10/28/20 20:46 Dose: 237 ml Documented by: Ondansetron HCl (Ondansetron 4 Mg/2 Ml Vial) 4 mg IV Q6HP PRN PRN Reason: NAUSEA / VOMITING Sodium Chloride (Flush Normal Saline 10 Ml) 10 ml IV BID [facility] Last Admin: 10/28/20 20:46 Dose: 10 ml Documented by: Thiamine HCl (Thiamine 200 Mg/2 Ml Inj) 200 mg IVP DAILY [facility] Last Admin: 10/28/20 10:12 Dose: 200 mg Documented by: Zinc Sulfate (Zinc Sulfate 220 Mg Cap) 220 mg PO DAILY [facility] Last Admin: 10/28/20 09:26 Dose: 220 mg Documented by: Microbiology Results 10/18/20 20:40 Blood - Blood Aerobic Blood Culture - Final No growth in 5 days. 10/18/20 20:40 Blood - Blood Anaerobic Blood Culture - Final No growth in 5 days. 10/18/20 20:55 Blood - Blood Aerobic Blood Culture - Final No growth in 5 days. 10/18/20 20:55 Blood - Blood Anaerobic Blood Culture - Final No growth in 5 days. 10/18/20 20:40 Throat Culture & Sensitivity - Final NORMAL UPPER RESPIRATORY MICAELA GROWN. 10/18/20 20:40 Throat Group A Streptococcus Rapid Screen - Final Assessment/ Plan: Nephrology Persistent hypoxia on Bipap. No acute events overnight. Vitals, medications, blood work and imaging reviewed in the chart. General: Oriented x3, Cooperative HEENT: Atraumatic Neck: Supple Respiratory: Diminished Cardiovascular: No edema, Regular rate/rhythm Gastrointestinal: Soft and benign, Non-distended Musculoskeletal: No clubbing, No contractures Integumentary: No rashes, No cyanosis Neurological: Normal speech Blood work reviewed in the chart. Imagings Data: EXAM DESCRIPTION: RAD - Chest Single View - 10/26/2020 9:13 am CLINICAL HISTORY: chest pain Chest pain. COMPARISON: Chest Single View dated 10/26/2020; Chest Single View dated 10/23/2020; Chest Single View dated 10/22/2020; Chest Single View dated 10/18/2020 FINDINGS: Portable technique limits examination quality. Extensive bilateral pulmonary opacities are slightly worse compared to 10/26 earlier study. The heart is mildly enlarged in size. No displaced fractures. IMPRESSION: Slight worsening in lung aeration seen since comparative study. Conclusions/Impression: A/P: Continue the current POC and Medications other than the changes listed. AM Labs PRN. Recommend daily weight. Please see the orders for complete details. DEBBI likely hypovolemia -Discontinue IVF; restart as needed Hyperkalemia -2K diet DM II with Hyperglycemia -Continue RISS -Continue Insulin 70/30 Moderate malnutrition -Encourage nutrition COVID-19 Acute hypoxic respiratory failure BL Pulmonary Embolism -Bipap as ordered -Continue Vitamin C and Zinc -Continue Eliquis Case reviewed with Dr. Forde. EXAM DESCRIPTION: CT - Chest For Pe Angio - 10/19/2020 6:32 am CLINICAL HISTORY: SOB TECHNIQUE: Contiguous axial images obtained through the chest during angiographic phase following the uneventful administration of IV contrast. Sagittal and coronal reformatted images were provided. MIP reformatted images were provided. This exam was performed according to our departmental dose-optimization program, which includes automated exposure control, adjustment of the mA and/or kV according to patient size and/or use of iterative reconstruction technique. COMPARISON: No prior exams provided for comparison. FINDINGS: Diagnostic quality: There is good opacification of the pulmonary arterial tree. Motion artifact degrades image quality and limits evaluation of segmental and subsegmental vessels. Lungs: Extensive multifocal, confluent groundglass opacities within the lungs bilaterally. Airways are patent. Pleura: No effusion. No pneumothorax. Heart and pericardium: The heart is enlarged. There may be slight bowing of the interventricular septum. Minimal pericardial effusion. Mediastinum and alona: No pathologically enlarged lymph nodes. Lower neck and chest wall: Unremarkable Vessels: Central, segmental and subsegmental right lower lobe pulmonary arterial filling defects. Additional scattered segmental and subsegmental right upper, right middle and left lower lobe pulmonary arterial filling defects. No thoracic aortic aneurysm. Upper abdomen: The liver is enlarged and diffusely low in density compatible with steatosis. Bones: Mild multilevel spondylosis. No acute fracture. IMPRESSION: 1. Bilateral pulmonary embolic disease, clot burden is greatest on the right. No saddle embolus. Possible early right-sided heart strain. 2. Extensive multifocal infiltrates bilaterally. Imaging features can be seen with viral pneumonia LEFT VENTRICULAR WALL MOTION: NORMAL DOPPLER/COLOR FLOW: MILD TRICUPSID REGURGITATION COMMENTS: NORMAL LEFT VENTRICULAR EJECTION FRACTION 60-65%. NORMAL WALL MOTION. RIGHT VENTRICLE IS NOT WELL SEEN. MILD TRICUSPID REGURGITATION. PULMONARY HYPERTENSION WITH RIGHT VENTRICULAR SYSTOLIC PRESSURE OF 55 mmHg AND RIGHT ATRIAL PRESSURE.
[2020-10-28] MEDS: MELATONIN 5 MG TABLET PO PRN (22:07)
[2020-10-28] MEDS: LORazepam 2 MG/ML VIAL IV PRN (22:32)
[2020-10-29] MEDS: MELATONIN 5 MG TABLET PO PRN ×2 (01:19→20:58)
[2020-10-29] MEDS: BENZONATATE 100 MG CAP PO PRN ×2 (01:19→09:00)
[2020-10-29] MEDS: LORazepam 2 MG/ML VIAL IV PRN ×3 (04:12→23:07)
[2020-10-29] MEDS ORDERED: LORazepam 2 MG/ML VIAL ONE (04:15)
[2020-10-29 04:55] LABS: Absolute Lymphocytes (CBC) 0.5 K/uL (0.7-4.9); Basophils % 0.5 % (0-1.3); Hematocrit 42.2 % (39.6-49.0); Lymphocytes % 1.9 % (15.3-44.8); MPV 10.7 fL (7.6-11.3); RBC Red Blood Cell Count 4.63 M/uL (4.33-5.43)
[2020-10-29 05:48] LABS: Albumin 2.3 g/dL (3.4-5.0); Bilirubin Total 0.9 mg/dL (0.2-1.0); C-Reactive Protein 56.3 mg/L (<3.00); Magnesium 3.1 mg/dL (1.8-2.4); Potassium 4.8 mmol/L (3.5-5.1); Protein, Total 6.5 g/dL (6.4-8.2)
[2020-10-29] MEDS ORDERED: ALBUTEROL 2.5 MG/3 ML NEB SOL NEB PRN (07:23)
[2020-10-29] MEDS: CEFTRIAXONE/SWI 1gm 1 GM/10 ML SYR IV SCH (08:50)
[2020-10-29] MEDS: ASPIRIN 81 MG CHEWABLE TABLET PO SCH (08:50)
[2020-10-29] MEDS: ASCORBIC ACID 500 MG TABLET PO SCH ×4 (08:51→20:42)
[2020-10-29] MEDS: ENSURE HIGH PROTEIN 237 ML CAN PO SCH ×2 (08:51→20:45)
[2020-10-29] MEDS: VITAMIN D 1000 UNIT TAB PO SCH (08:51)
[2020-10-29] MEDS: THIAMINE 200 MG/2 ML INJ IVP SCH (08:51)
[2020-10-29] MEDS: APIXABAN 5 MG TABLET PO SCH ×2 (08:51→20:41)
[2020-10-29] MEDS: ZINC SULFATE 220 MG CAP PO SCH (08:51)
[2020-10-29] MEDS: METHYLPREDNISOLONE 40 MG INJ IV SCH ×2 (08:51→20:42)
[2020-10-29] MEDS: FAMOTIDINE 20 MG TAB PO SCH ×2 (08:51→20:41)
[2020-10-29] MEDS: INSULIN -REGULAR HUMAN 50 UNIT/0.5 ML ML SQ SCH ×4 (08:52→20:44)
[2020-10-29] MEDS: INSULIN 70/30 100 UNITS/ML SQ SCH ×2 (08:52→16:58)
--- NOTE | 2020-10-29 08:56 | RAD REPORT ---
EXAM DESCRIPTION: RAD - Chest Single View - 10/29/2020 5:08 am CLINICAL HISTORY: hypoxia, COVID Chest pain. COMPARISON: Chest Single View dated 10/26/2020; Chest Single View dated 10/26/2020; Chest Single View dated 10/23/2020; Chest Single View dated 10/22/2020 FINDINGS: Portable technique limits examination quality. Moderate bilateral pulmonary opacities are noted, unchanged since prior study. The heart is moderatel y enlarged in size. No displaced fractures. IMPRESSION: Stable chest since 10/26/2020.
--- NOTE | 2020-10-29 13:02 | RAD REPORT ---
EXAM DESCRIPTION: RAD - Chest Single View - 10/29/2020 12:34 pm CLINICAL HISTORY: dubhoff placement COMPARISON: Portable chest October 29 TECHNIQUE: AP portable chest image was obtained 10/29/2020 12:34 pm . FINDINGS: Detail is limited due to large body habitus and portable technique. Feeding tube is in orlin ce extending below the diaphragm. Based on prior imaging the tube is in the left upper quadrant which would be the proximal stomach. Prominent heart, vasculature and lung markings similar to earlier study. IMPRESSION: Feeding tube has been placed. Tip of the tube is in the proximal stomach.
[2020-10-29] MEDS: GLUCERNA 1.5 CAL 1,000 ML BOT FT SCH ×2 (14:00→20:45)
--- NOTE | 2020-10-29 17:07 | P.PN ---
Subjective Date of Service: 10/29/20 Chief Complaint: covid pneumonia, bilateral PE Subjective: Other (Overnight, patient was reportedly in more depressed and tired, takes BiPAP off and not cooperating. Stated he wanted to be done with all this.) Review of Systems 10-point ROS is otherwise unremarkable Physical Examination - Vital Signs Temperature: 97.1 F Blood Pressure: 124/84 Pulse: 77 Respirations: 33 Pulse Ox (%): 89 Assessment & Plan Physician Review Additional Text: Physical Exam General: Alert, mild distress, appears very tired Respiratory: labored respirations on BIPAP, FiO2: 100% Cardiovascular: Regular rate/rhythm, Normal S1 S2 Gastrointestinal: Soft and benign, Non-distended Ext: 1+ edema bilateral lower extremities Integumentary: No rash Neurological: AAOx3, normal speech, depressed affect Problem List Acute respiratory failure with hypoxia secondary to COVID-19 pneumonia acute bilateral Pulmonary embolism Hyperglycemia, steroid induced DEBBI, prerenal -continue BIPAP, HFNC as tolerated -continue solumedrol, vitamin supplementation, s/p Ivermectin, s/p convalescent plasma, s/p remdesevir -continue eliquis - has bilateral PEs -pulm consulted / following -continue insulin sliding scale, hyperglycemic - steroid induced, titrate 70/30 -significantly elevated inflammatory markers, CRP improved today -advised against trying to drink while BIPAP mask in place, discussed dobhoff, patient declined -given patient's depressed mood and wanting to give up, his son was allowed to visit, which lifted his spirits and was agreeable to dobhoff -started IV rocephin to cover for bacterial superinfection on 10/27, concern for aspiration with patient drinking throught straw with bipap mask on (on 10/27) -CXR unchanged -DEBBI improved with IVF yesterday and then dc'd due to slight edema, Cr stable VTE: eliquis Code: DNI Dispo: guarded prognosis, patient is ill and requiring high levels of oxygen Time Spent Managing Pts Care (In Minutes): 35
[2020-10-29] MEDS: MIRTAZAPINE 15 MG TAB PO SCH (20:42)
--- NOTE | 2020-10-29 23:26 | P.PN ---
Date of Service: 10/29/20 Vital Signs Temp Pulse Resp BP Pulse Ox 97.6 F 88 36 H 108/82 94 10/29/20 20:00 10/29/20 20:00 10/29/20 20:00 10/29/20 20:00 10/29/20 20:00 Medications Acetaminophen (Acetaminophen 500 Mg Tab) 500 mg PO Q4HP PRN PRN Reason: Pain scale 2-4 (Mild) Albuterol Sulfate (Albuterol 2.5 Mg/3 Ml Neb Marija) 2.5 mg NEB Q6HP PRN PRN Reason: SHORTNESS OF BREATH Apixaban (Apixaban 5 Mg Tablet) 5 mg PO BID [facility] Last Admin: 10/29/20 20:41 Dose: 5 mg Documented by: Ascorbic Acid (Ascorbic Acid 500 Mg Tablet) 500 mg PO QID [facility] Last Admin: 10/29/20 20:42 Dose: 500 mg Documented by: Aspirin (Aspirin 81 Mg Chewable Tablet) 162 mg PO DAILY [facility] Last Admin: 10/29/20 08:50 Dose: 162 mg Documented by: Benzonatate (Benzonatate 100 Mg Cap) 100 mg PO TID PRN PRN Reason: COUGH Last Admin: 10/29/20 09:00 Dose: 100 mg Documented by: Cholecalciferol (Vitamin D 1000 Unit Tab) 4,000 unit PO DAILY [facility] Last Admin: 10/29/20 08:51 Dose: 4,000 unit Documented by: Enteral Nutritional Formula (Glucerna 1.5 Vic 1,000 Ml Bot) 237 ml FT TID [facility] Last Admin: 10/29/20 20:45 Dose: 237 ml Documented by: Famotidine (Famotidine 20 Mg Tab) 40 mg PO BID [facility]; Protocol Last Admin: 10/29/20 20:41 Dose: 40 mg Documented by: Ceftriaxone Sodium/Sodium Chloride (Rocephin 1 Gm/10 Ml Swi Ivp) 1 gm in 10 mls @ 20 mls/hr IV DAILY [facility]; Protocol Last Admin: 10/29/20 08:50 Dose: 10 mls Documented by: Insulin Human Isoph/Insulin Regular (Insulin 70/30 100 Units/Ml) 15 unit SQ BIDAC [facility] Last Admin: 10/29/20 16:58 Dose: 15 unit Documented by: Insulin Human Regular (Insulin -Regular Human 50 Unit/0.5 Ml Ml) 0 unit SQ ACHS [facility]; Protocol Last Admin: 10/29/20 20:44 Dose: 6 unit Documented by: Lorazepam (Lorazepam 2 Mg/Ml Vial) 0.5 mg IV Q6H PRN PRN Reason: ANXIETY Last Admin: 10/29/20 23:07 Dose: 0.5 mg Documented by: Melatonin (Melatonin 5 Mg Tablet) 10 mg PO BEDTIME PRN PRN PRN Reason: INSOMNIA Last Admin: 10/29/20 20:58 Dose: 10 mg Documented by: Methylprednisolone Sodium Succinate (Methylprednisolone 40 Mg Inj) 80 mg IV BID [facility] Last Admin: 10/29/20 20:42 Dose: 80 mg Documented by: Mirtazapine (Mirtazapine 15 Mg Tab) 15 mg PO BEDTIME [facility] Last Admin: 10/29/20 20:42 Dose: 15 mg Documented by: Morphine Sulfate (Morphine 2 Mg/Ml Syr) 2 mg IV Q4H PRN PRN Reason: Pain scale 5-7 (Moderate) Last Admin: 10/27/20 08:13 Dose: 2 mg Documented by: Nutritional Formula (Ensure High Protein 237 Ml Can) 237 ml PO BID [facility] Last Admin: 10/29/20 20:45 Dose: Not Given Documented by: Ondansetron HCl (Ondansetron 4 Mg/2 Ml Vial) 4 mg IV Q6HP PRN PRN Reason: NAUSEA / VOMITING Sodium Chloride (Flush Normal Saline 10 Ml) 10 ml IV BID [facility] Last Admin: 10/29/20 20:58 Dose: 10 ml Documented by: Thiamine HCl (Thiamine 200 Mg/2 Ml Inj) 200 mg IVP DAILY [facility] Last Admin: 10/29/20 08:51 Dose: 200 mg Documented by: Zinc Sulfate (Zinc Sulfate 220 Mg Cap) 220 mg PO DAILY [facility] Last Admin: 10/29/20 08:51 Dose: 220 mg Documented by: Microbiology Results 10/18/20 20:40 Blood - Blood Aerobic Blood Culture - Final No growth in 5 days. 10/18/20 20:40 Blood - Blood Anaerobic Blood Culture - Final No growth in 5 days. 10/18/20 20:55 Blood - Blood Aerobic Blood Culture - Final No growth in 5 days. 10/18/20 20:55 Blood - Blood Anaerobic Blood Culture - Final No growth in 5 days. 10/18/20 20:40 Throat Culture & Sensitivity - Final NORMAL UPPER RESPIRATORY MICAELA GROWN. 10/18/20 20:40 Throat Group A Streptococcus Rapid Screen - Final Assessment/ Plan: Nephrology Persistent hypoxia on Bipap. Depressed. No acute events overnight. Vitals, medications, blood work and imaging reviewed in the chart. General: Oriented x3, Cooperative HEENT: Atraumatic Neck: Supple Respiratory: Diminished Cardiovascular: No edema, Regular rate/rhythm Gastrointestinal: Soft and benign, Non-distended Musculoskeletal: No clubbing, No contractures Integumentary: No rashes, No cyanosis Neurological: Normal speech Blood work reviewed in the chart. Imagings Data: EXAM DESCRIPTION: RAD - Chest Single View - 10/26/2020 9:13 am CLINICAL HISTORY: chest pain Chest pain. COMPARISON: Chest Single View dated 10/26/2020; Chest Single View dated 10/23; Chest Single View dated 10/22/2020; Chest Single View dated 10/18/2020 FINDINGS: Portable technique limits examination quality. Extensive bilateral pulmonary opacities are slightly worse compared to 10/26/2020 earlier study. The heart is mildly enlarged in size. No displaced fractures. IMPRESSION: Slight worsening in lung aeration seen since comparative study. Conclusions/Impression: A/P: Continue the current POC and Medications other than the changes listed. AM Labs PRN. Recommend daily weight. Please see the orders for complete details. DEBBI likely hypovolemia -Hold IVF Hyperkalemia -2K diet DM II with Hyperglycemia -Continue RISS -Continue Insulin 70/30 Moderate malnutrition -Encourage nutrition COVID-19 Acute hypoxic respiratory failure BL Pulmonary Embolism -Bipap as ordered -Continue Vitamin C and Zinc -Continue Eliquis Case reviewed with Dr. Forde. EXAM DESCRIPTION: CT - Chest For Pe Angio - 10/19/2020 6:32 am CLINICAL HISTORY: SOB TECHNIQUE: Contiguous axial images obtained through the chest during angiographic phase following the uneventful administration of IV contrast. Sagittal and coronal reformatted images were provided. MIP reformatted images were provided. This exam was performed according to our departmental dose-optimization program, which includes automated exposure control, adjustment of the mA and/or kV according to patient size and/or use of iterative reconstruction technique. COMPARISON: No prior exams provided for comparison. FINDINGS: Diagnostic quality: There is good opacification of the pulmonary arterial tree. Motion artifact degrades image quality and limits evaluation of segmental and subsegmental vessels. Lungs: Extensive multifocal, confluent groundglass opacities within the lungs bilaterally. Airways are patent. Pleura: No effusion. No pneumothorax. Heart and pericardium: The heart is enlarged. There may be slight bowing of the interventricular septum. Minimal pericardial effusion. Mediastinum and alona: No pathologically enlarged lymph nodes. Lower neck and chest wall: Unremarkable Vessels: Central, segmental and subsegmental right lower lobe pulmonary arterial filling defects. Additional scattered segmental and subsegmental right upper, right middle and left lower lobe pulmonary arterial filling defects. No thoracic aortic aneurysm. Upper abdomen: The liver is enlarged and diffusely low in density compatible with steatosis. Bones: Mild multilevel spondylosis. No acute fracture. IMPRESSION: 1. Bilateral pulmonary embolic disease, clot burden is greatest on the right. No saddle embolus. Possible early right-sided heart strain. 2. Extensive multifocal infiltrates bilaterally. Imaging features can be seen with viral pneumonia LEFT VENTRICULAR WALL MOTION: NORMAL DOPPLER/COLOR FLOW: MILD TRICUPSID REGURGITATION COMMENTS: NORMAL LEFT VENTRICULAR EJECTION FRACTION 60-65%. NORMAL WALL MOTION. RIGHT VENTRICLE IS NOT WELL SEEN. MILD TRICUSPID REGURGITATION. PULMONARY HYPERTENSION WITH RIGHT VENTRICULAR SYSTOLIC PRESSURE OF 55 mmHg AND RIGHT ATRIAL PRESSURE.
[2020-10-30] MEDS: MORPHINE 2 MG/ML SYR IV PRN (02:23)
[2020-10-30] MEDS ORDERED: FUROSEMIDE 40 MG/4 ML VIAL IV ONE (03:53)
[2020-10-30] MEDS ORDERED: FUROSEMIDE 40 MG/4 ML VIAL ONE (04:12)
[2020-10-30 04:18] LABS: Absolute Lymphocytes (CBC) 0.4 K/uL (0.7-4.9); Basophils % 0.3 % (0-1.3); Hematocrit 42.2 % (39.6-49.0); Lymphocytes % 1.5 % (15.3-44.8); MPV 11.1 fL (7.6-11.3); RBC Red Blood Cell Count 4.63 M/uL (4.33-5.43)
[2020-10-30 04:31] LABS: Albumin 2.4 g/dL (3.4-5.0); C-Reactive Protein 27.3 mg/L (<3.00); Ferritin 1714.8 ng/mL (26-388); Potassium 5.4 mmol/L (3.5-5.1); Protein, Total 6.4 g/dL (6.4-8.2)
[2020-10-30] MEDS: LORazepam 2 MG/ML VIAL IV PRN ×3 (05:36→23:52)
--- NOTE | 2020-10-30 07:54 | RAD REPORT ---
EXAM DESCRIPTION: RAD - Chest Single View - 10/30/2020 7:10 am CLINICAL HISTORY: covid pneumonia COMPARISON: October 29October 26 TECHNIQUE: AP portable chest image was obtained 10/30/2020 7:10 am . FINDINGS: Bilateral mid and lower lung field pneumonia changes are noted. Patient may be fractionall y improved on the left. Any incremental change is very minimal. Enteric tube extends below the diaphr agm but is otherwise obscured from view. Heart size and vasculature are stable. No measurable pleural effusion and no pneumothorax. IMPRESSION: Chest examination is essentially stable. There may be slight improvement in the left lung field. Any incremental change is minimal.
[2020-10-30] MEDS: ENSURE HIGH PROTEIN 237 ML CAN PO SCH ×2 (09:00→20:09)
[2020-10-30] MEDS: GLUCERNA 1.5 CAL 1,000 ML BOT FT SCH ×3 (09:00→20:09)
[2020-10-30] MEDS: ASCORBIC ACID 500 MG TABLET PO SCH ×4 (09:38→20:08)
[2020-10-30] MEDS: VITAMIN D 1000 UNIT TAB PO SCH (09:38)
[2020-10-30] MEDS: ASPIRIN 81 MG CHEWABLE TABLET PO SCH (09:39)
[2020-10-30] MEDS: ZINC SULFATE 220 MG CAP PO SCH (09:39)
[2020-10-30] MEDS: APIXABAN 5 MG TABLET PO SCH ×2 (09:39→20:08)
[2020-10-30] MEDS: FAMOTIDINE 20 MG TAB PO SCH ×2 (09:40→20:08)
[2020-10-30] MEDS: CEFTRIAXONE/SWI 1gm 1 GM/10 ML SYR IV SCH (09:42)
[2020-10-30] MEDS: THIAMINE 200 MG/2 ML INJ IVP SCH (09:42)
[2020-10-30] MEDS: METHYLPREDNISOLONE 40 MG INJ IV SCH ×2 (09:42→20:08)
[2020-10-30] MEDS: INSULIN 70/30 100 UNITS/ML SQ SCH ×2 (09:43→18:17)
[2020-10-30] MEDS: INSULIN -REGULAR HUMAN 50 UNIT/0.5 ML ML SQ SCH ×4 (09:43→20:49)
[2020-10-30] MEDS ORDERED: LORazepam 2 MG/ML VIAL IV PRN (10:26)
--- NOTE | 2020-10-30 17:28 | P.PN ---
Subjective Date of Service: 10/30/20 Chief Complaint: covid pneumonia, bilateral PE Subjective: No new changes (Was hypoxic overnight down to low 80s for 30 minutes on BiPAP, improved after given Lasix, otherwise reports he feels a little better today) Review of Systems 10-point ROS is otherwise unremarkable Physical Examination - Vital Signs Temperature: 97.2 F Blood Pressure: 159/86 Pulse: 106 Respirations: 33 Pulse Ox (%): 95 Assessment & Plan Physician Review Additional Text: Physical Exam General: Alert, appears fatigued Respiratory: labored respirations on BIPAP, FiO2: 100% Cardiovascular: Regular rate/rhythm, Normal S1 S2 Gastrointestinal: Soft and benign, Non-distended Ext: trace-1+ edema bilateral lower extremities Integumentary: No rash Neurological: AAOx3, normal speech, depressed affect Problem List Acute respiratory failure with hypoxia secondary to COVID-19 pneumonia acute bilateral Pulmonary embolism Hyperglycemia, steroid induced DEBBI, prerenal -continue BIPAP, HFNC as tolerated -continue solumedrol, vitamin supplementation, s/p Ivermectin, s/p convalescent plasma, s/p remdesevir -continue eliquis - has bilateral PEs -pulm consulted / following -continue insulin sliding scale, hyperglycemic - steroid induced, titrate 70/30 as needed -significantly elevated inflammatory markers, improved today -advised against trying to drink while BIPAP mask in place, discussed dobhoff - finally agreeable when son came to visit on 10/29. -started IV rocephin to cover for bacterial superinfection on 10/27, concern for aspiration with patient drinking through straw with bipap mask on (on 10/27) -DEBBI improved with IVF, IVF dc'd due to volume status, Cr stable VTE: eliquis Code: DNI Dispo: guarded prognosis, patient is ill and requiring high levels of oxygen Time Spent Managing Pts Care (In Minutes): 35
--- NOTE | 2020-10-30 20:06 | PN ---
Date of Progress Note: 10/30/2020 Subjective: The patient was seen. Vital signs have been reviewed. The patient is refusing care and he has pulled out his NG tube. He is depressed and not eating well, not cooperating. Exam was limited because of COVID. Impression: 1.Acute respiratory failure with hypoxia secondary to COVID-19 pneumonia. 2.Acute bilateral pulmonary embolism. 3.Acute kidney injury, improving. 4.Hyperglycemia, steroid induced. 5.Severe malnutrition and depression. Plan: The patient's renal function is overall stable. We will discuss further with Dr. Forde if he would benefit from Ritalin to help with his depression in the acute setting. He has mild hyperkalemi a. His medications have been reviewed in detail. He is not receiving any medications that can contr ibute to hyperkalemia. We will continue to monitor and follow up closely. Continue insulin per prot ocol and monitor hyperglycemia. VV/MODL Voice ID: [id number] Report ID: [id number]
[2020-10-30] MEDS: MIRTAZAPINE 15 MG TAB PO SCH (20:08)
[2020-10-30] MEDS: MELATONIN 5 MG TABLET PO PRN (20:16)
[2020-10-30] MEDS: BENZONATATE 100 MG CAP PO PRN (20:16)
[2020-10-31 05:03] LABS: Absolute Lymphocytes (CBC) 0.5 K/uL (0.7-4.9); Basophils % 0.4 % (0-1.3); MPV 10.6 fL (7.6-11.3); RBC Red Blood Cell Count 4.69 M/uL (4.33-5.43)
[2020-10-31 05:33] LABS: Albumin 2.6 g/dL (3.4-5.0); Bilirubin Total 1.1 mg/dL (0.2-1.0); C-Reactive Protein 16.1 mg/L (<3.00); Ferritin 1901.3 ng/mL (26-388); Magnesium 3.2 mg/dL (1.8-2.4); Protein, Total 6.6 g/dL (6.4-8.2)
[2020-10-31 05:50] LABS: Potassium 5.6 mmol/L (3.5-5.1)
[2020-10-31] MEDS ORDERED: SOD POLYSTYREN SUL 15 GM/60 ML UCUP PO ONE (06:04)
[2020-10-31] MEDS: INSULIN -REGULAR HUMAN 50 UNIT/0.5 ML ML SQ SCH ×4 (07:30→20:27)
[2020-10-31] MEDS: ZINC SULFATE 220 MG CAP PO SCH (08:09)
[2020-10-31] MEDS: ASCORBIC ACID 500 MG TABLET PO SCH ×4 (08:09→20:25)
[2020-10-31] MEDS: THIAMINE 200 MG/2 ML INJ IVP SCH (08:09)
[2020-10-31] MEDS: GLUCERNA 1.5 CAL 1,000 ML BOT FT SCH ×3 (08:10→20:28)
[2020-10-31] MEDS: FAMOTIDINE 20 MG TAB PO SCH ×2 (08:10→20:25)
[2020-10-31] MEDS: CEFTRIAXONE/SWI 1gm 1 GM/10 ML SYR IV SCH (08:10)
[2020-10-31] MEDS: VITAMIN D 1000 UNIT TAB PO SCH (08:10)
[2020-10-31] MEDS: ENSURE HIGH PROTEIN 237 ML CAN PO SCH ×2 (08:10→20:28)
[2020-10-31] MEDS: METHYLPREDNISOLONE 40 MG INJ IV SCH (08:10)
[2020-10-31] MEDS: INSULIN 70/30 100 UNITS/ML SQ SCH ×2 (08:15→16:30)
[2020-10-31 08:45] LABS: Protime INR 1.7
[2020-10-31] MEDS ORDERED: FONDAPARINUX SOD 7.5 MG/0.6 ML SQ SCH (09:00)
[2020-10-31] MEDS ORDERED: OXYMETAZOLINE HCL 0.05% 15ML NAS PRN (09:06)
[2020-10-31] MEDS: LORazepam 2 MG/ML VIAL IV PRN (09:30)
[2020-10-31] MEDS: MORPHINE 2 MG/ML SYR IV PRN (12:05)
--- NOTE | 2020-10-31 14:24 | P.PN ---
Subjective Date of Service: 10/31/20 Chief Complaint: covid pneumonia, bilateral PE Subjective: No new changes (patient's platelets down to 35, he reports feeling better this morning, no significant changes. had mild nose bleed overnight, off/on per patient) Review of Systems 10-point ROS is otherwise unremarkable Physical Examination - Vital Signs Temperature: 97.3 F Blood Pressure: 134/78 Pulse: 90 Respirations: 18 Pulse Ox (%): 93 Assessment & Plan Physician Review Additional Text: Physical Exam General: Alert but fatigued Respiratory: labored respirations on BIPAP, FiO2: 100% Cardiovascular: Regular rate/rhythm, Normal S1 S2 Gastrointestinal: Soft and benign, Non-distended Ext: trace-1+ edema bilateral lower extremities Integumentary: No rash Neurological: AAOx3, depressed affect, moves all extremities Problem List Acute respiratory failure with hypoxia secondary to COVID-19 pneumonia acute bilateral Pulmonary embolism Hyperglycemia, steroid induced Thrombocytopenia Hyperkalemia DEBBI, prerenal -continue BIPAP, HFNC as tolerated, continue solumedrol, vitamin supplementation, s/p Ivermectin, s/p convalescent plasma, s/p remdesevir -was on eliquis for bilateral PEs - discontinued 10/31, pt with thrombocytopenia -restart eliquis when plt >50k -concern for DIC /COVID coagulopathy with dropping platelets -check d-dimer, fibrinogen -unlikely HIT - pt has been on eliquis, no other significant medications to cause thrombocytopenia -pulm consulted / following -continue insulin sliding scale, hyperglycemic - steroid induced, titrate 70/30 as needed -significantly elevated inflammatory markers initially, now improving -patient continues to be very tired, mask off multiple times over the last week -started IV rocephin to cover for bacterial superinfection on 10/27, concern for aspiration with patient drinking through straw with bipap mask on (on 10/27) -DEBBI improved with IVF, IVF dc'd due to volume status, Cr stable -Afrin ordered for nosebleed -discussed with pharmacy - don't have ritalin/adderall on formulary, will try modafinil VTE: SCDs Code: DNI Dispo: guarded prognosis, patient is ill and requiring high levels of oxygen Time Spent Managing Pts Care (In Minutes): 35
--- NOTE | 2020-10-31 15:32 | PN ---
Date of Progress Note: 10/31/2020 Interval History: The patient is continuing to be agitated. He tried to rip out his IV and his BiPA P, and he is trying to get out of here. Physical Examination: Vital signs have been reviewed. The patient is going into AFib. He remains on BiPAP 100% FiO2. He appears agitated and confused. Laboratory Data: Showing creatinine worsening to 1.4, potassium of 5.6. CBC showing worsening leuko cytosis, stable hemoglobin, hematocrit, and platelet count of 35. Current Medications: Have been reviewed. Impression: 1.Acute renal failure secondary to ongoing COVID-19 pneumonia. 2.COVID-19 pneumonia with acute respiratory failure. 3.Hyperglycemia secondary to steroid use. 4.Thrombocytopenia. 5.Agitation and confusion. 6.Hyperkalemia. Plan: Overall, the patient's renal function worse secondary to decreased p.o. intake from ongoing re spiratory failure. He would benefit from IV fluids or increased p.o. intake; however, he is not doin g either one of that right now. If possible, we will discuss with Dr. Forde if he would benefit from IV fluid administration and monitor him closely and hold off on the Lasix to prevent further worseni ng of renal function. Continue all other medications and plan of care. VV/MODL Voice ID: [id number] Report ID: [id number]
[2020-10-31] MEDS: modafiniL 100 MG TAB PO SCH (16:00)
[2020-10-31] MEDS: MIRTAZAPINE 15 MG TAB PO SCH (20:25)
[2020-10-31] MEDS: METHYLPREDNISOLONE 125 MG INJ IV SCH (20:26)
[2020-10-31] MEDS: MELATONIN 5 MG TABLET PO PRN (22:03)
[2020-10-31] MEDS: BENZONATATE 100 MG CAP PO PRN (22:03)
[2020-11-01] MEDS: LORazepam 2 MG/ML VIAL IV PRN ×2 (01:39→22:55)
[2020-11-01 04:02] LABS: Absolute Lymphocytes (CBC) 0.5 K/uL (0.7-4.9); Basophils % 0.2 % (0-1.3); Hematocrit 42.1 % (39.6-49.0); Lymphocytes % 1.5 % (15.3-44.8); MPV 10.8 fL (7.6-11.3); RBC Red Blood Cell Count 4.66 M/uL (4.33-5.43)
[2020-11-01 04:17] LABS: Albumin 2.6 g/dL (3.4-5.0); Bilirubin Total 1.3 mg/dL (0.2-1.0); C-Reactive Protein 12.6 mg/L (<3.00); Magnesium 3.1 mg/dL (1.8-2.4); Potassium 5.1 mmol/L (3.5-5.1); Protein, Total 6.4 g/dL (6.4-8.2)
[2020-11-01] MEDS: MORPHINE 2 MG/ML SYR IV PRN (04:25)
[2020-11-01 04:53] LABS: Blood Morphology Comment NOT SEEN (NOT SEEN); Platelet Estimate DECR
[2020-11-01] MEDS: CEFTRIAXONE/SWI 1gm 1 GM/10 ML SYR IVP SCH (08:35)
[2020-11-01] MEDS: METHYLPREDNISOLONE 125 MG INJ IV SCH ×2 (08:35→21:17)
[2020-11-01] MEDS: ASCORBIC ACID 500 MG TABLET PO SCH ×4 (08:36→21:18)
[2020-11-01] MEDS: FAMOTIDINE 20 MG TAB PO SCH ×2 (08:36→21:17)
[2020-11-01] MEDS: ZINC SULFATE 220 MG CAP PO SCH (08:36)
[2020-11-01] MEDS: INSULIN -REGULAR HUMAN 50 UNIT/0.5 ML ML SQ SCH ×4 (08:36→21:18)
[2020-11-01] MEDS: VITAMIN D 1000 UNIT TAB PO SCH (08:36)
[2020-11-01] MEDS: INSULIN 70/30 100 UNITS/ML SQ SCH ×2 (08:38→16:46)
[2020-11-01] MEDS: ENSURE HIGH PROTEIN 237 ML CAN PO SCH ×2 (08:38→21:00)
[2020-11-01] MEDS: GLUCERNA 1.5 CAL 1,000 ML BOT FT SCH ×3 (08:39→21:00)
[2020-11-01] MEDS: modafiniL 100 MG TAB PO SCH (08:40)
[2020-11-01] MEDS: THIAMINE 200 MG/2 ML INJ IVP SCH (08:46)
--- NOTE | 2020-11-01 12:15 | P.PN ---
Subjective Date of Service: 11/01/20 Chief Complaint: covid pneumonia, bilateral PE patient is not improving he is thrombocytopenic has had some nasal bleeds still requiring high concentrations of oxygen he to caught his kinsey Review of Systems General: Weakness Respiratory: Cough, Shortness of Breath Physical Examination - Vital Signs Temperature: 97.4 F Blood Pressure: 142/88 Pulse: 92 Respirations: 20 Pulse Ox (%): 92 Assessment & Plan - Problems (Diagnosis) (1) Pneumonia due to COVID-19 virus Current Visit: Yes Status: Acute Plan: respiratory failure white count is elevated thrombocytopenic patient started on Rocephin prognosis very poor (2) Pulmonary embolism Current Visit: Yes Status: Acute Plan: anticoagulation on hold due to nasal bleeding Qualifiers: Pulmonary embolism type: unspecified Chronicity: acute Acute cor pulmonale presence: unspecified Qualified Code(s): I26.99 - Other pulmonary embolism without acute cor pulmonale
--- NOTE | 2020-11-01 14:23 | P.PN ---
Subjective Date of Service: 11/01/20 Chief Complaint: covid pneumonia, bilateral PE Subjective: No new changes (no significant changes, reports feeling about the same. patient appears more awake) Review of Systems 10-point ROS is otherwise unremarkable Physical Examination - Vital Signs Temperature: 97.4 F Blood Pressure: 142/88 Pulse: 92 Respirations: 20 Pulse Ox (%): 92 Assessment & Plan Physician Review Additional Text: Physical Exam General: Alert but fatigued, sitting up at bed edge Respiratory: labored respirations on BIPAP, FiO2: 100% Cardiovascular: Regular rate/rhythm, Normal S1 S2 Gastrointestinal: Soft and benign, Non-distended Ext: 1+ edema bilateral lower extremities Integumentary: No rash Neurological: AAOx3, depressed affect, moves all extremities Problem List Acute respiratory failure with hypoxia secondary to COVID-19 pneumonia Acute bilateral Pulmonary embolism Hyperglycemia, steroid induced DIC Thrombocytopenia Hyperkalemia DEBBI, prerenal -continue BIPAP, HFNC as tolerated, continue solumedrol, vitamin supplementation, s/p Ivermectin, s/p convalescent plasma, s/p Remdesevir -eliquis for bilateral PEs - discontinued 10/31, pt with thrombocytopenia -restart eliquis when plt >50k -workup consistent with DIC / COVID coagulopathy, high d-dimer, low fibrinogen, thrombocytopenia -unlikely HIT - pt has been on eliquis, no other significant medications to cause thrombocytopenia -pulm consulted / following -continue insulin sliding scale, hyperglycemic - steroid induced, titrate 70/30 as needed -significantly elevated inflammatory markers initially, now improving -patient continues to be very tired, mask off multiple times over the last week -started IV rocephin to cover for bacterial superinfection on 10/27, concern for aspiration with patient drinking through straw with bipap mask on (on 10/27) -DEBBI initially improved with IVF, IVF dc'd due to volume status, Cr stable -Afrin ordered for nosebleed -discussed with pharmacy - don't have ritalin/adderall on formulary, ordered modafinil on 10/31 VTE: SCDs Code: DNI Dispo: guarded prognosis, patient is ill and requiring high levels of oxygen Time Spent Managing Pts Care (In Minutes): 35
[2020-11-01] MEDS ORDERED: METOLAZONE 5 MG TABLET PO ONE (16:00)
--- NOTE | 2020-11-01 19:45 | P.PN ---
Date of Service: 11/01/20 Vital Signs Temp Pulse Resp BP Pulse Ox 97.8 F 92 H 20 142/88 H 91 11/01/20 16:00 11/01/20 16:02 11/01/20 16:00 11/01/20 16:02 11/01/20 16:00 Medications Acetaminophen (Acetaminophen 500 Mg Tab) 500 mg PO Q4HP PRN PRN Reason: Pain scale 2-4 (Mild) Albuterol Sulfate (Albuterol 2.5 Mg/3 Ml Neb Marija) 2.5 mg NEB Q6HP PRN PRN Reason: SHORTNESS OF BREATH Last Admin: 10/30/20 04:30 Dose: 2.5 mg Documented by: Ascorbic Acid (Ascorbic Acid 500 Mg Tablet) 500 mg PO QID ROBIN Last Admin: 11/01/20 16:44 Dose: 500 mg Documented by: Benzonatate (Benzonatate 100 Mg Cap) 100 mg PO TID PRN PRN Reason: COUGH Last Admin: 10/31/20 22:03 Dose: 100 mg Documented by: Cholecalciferol (Vitamin D 1000 Unit Tab) 4,000 unit PO DAILY ROBIN Last Admin: 11/01/20 08:36 Dose: 4,000 unit Documented by: Enteral Nutritional Formula (Glucerna 1.5 Vic 1,000 Ml Bot) 237 ml FT TID [facility] Last Admin: 11/01/20 13:33 Dose: Not Given Documented by: Famotidine (Famotidine 20 Mg Tab) 40 mg PO BID ROBIN; Protocol Last Admin: 11/01/20 08:36 Dose: 40 mg Documented by: Ceftriaxone Sodium/Sodium Chloride (Rocephin 1 Gm/10 Ml Swi Ivp) 1 gm in 10 mls @ 600 mls/hr IVP DAILY [facility]; Protocol Last Admin: 11/01/20 08:35 Dose: 10 mls Documented by: Insulin Human Isoph/Insulin Regular (Insulin 70/30 100 Units/Ml) 25 unit SQ BIDAC [facility]IN Last Admin: 11/01/20 16:46 Dose: 25 unit Documented by: Insulin Human Regular (Insulin -Regular Human 50 Unit/0.5 Ml Ml) 0 unit SQ ACHS [facility]; Protocol Last Admin: 11/01/20 16:44 Dose: 10 unit Documented by: Lorazepam (Lorazepam 2 Mg/Ml Vial) 0.5 mg IV Q8H PRN PRN Reason: ANXIETY Last Admin: 11/01/20 01:39 Dose: 0.5 mg Documented by: Melatonin (Melatonin 5 Mg Tablet) 10 mg PO BEDTIME PRN PRN PRN Reason: INSOMNIA Last Admin: 10/31/20 22:03 Dose: 10 mg Documented by: Methylprednisolone Sodium Succinate (Methylprednisolone 125 Mg Inj) 80 mg IV BID [facility] Last Admin: 11/01/20 08:35 Dose: 80 mg Documented by: Mirtazapine (Mirtazapine 15 Mg Tab) 15 mg PO BEDTIME [facility] Last Admin: 10/31/20 20:25 Dose: 15 mg Documented by: Modafinil (Modafinil 100 Mg Tab) 100 mg PO DAILY [facility] Last Admin: 11/01/20 08:40 Dose: 100 mg Documented by: Morphine Sulfate (Morphine 2 Mg/Ml Syr) 2 mg IV Q4H PRN PRN Reason: Pain scale 5-7 (Moderate) Last Admin: 11/01/20 04:25 Dose: 2 mg Documented by: Nutritional Formula (Ensure High Protein 237 Ml Can) 237 ml PO BID [facility] Last Admin: 11/01/20 08:38 Dose: 237 ml Documented by: Ondansetron HCl (Ondansetron 4 Mg/2 Ml Vial) 4 mg IV Q6HP PRN PRN Reason: NAUSEA / VOMITING Oxymetazoline HCl (Oxymetazoline Hcl 0.05% 15ml) 2 appl JESUS BID PRN PRN Reason: NASAL CONGESTION Last Admin: 10/31/20 16:31 Dose: 2 sprays Documented by: Sodium Chloride (Flush Normal Saline 10 Ml) 10 ml IV BID [facility] Last Admin: 11/01/20 08:40 Dose: 10 ml Documented by: Thiamine HCl (Thiamine 200 Mg/2 Ml Inj) 200 mg IVP DAILY [facility] Last Admin: 11/01/20 08:46 Dose: 200 mg Documented by: Zinc Sulfate (Zinc Sulfate 220 Mg Cap) 220 mg PO DAILY [facility] Last Admin: 11/01/20 08:36 Dose: 220 mg Documented by: Microbiology Results 10/18/20 20:40 Blood - Blood Aerobic Blood Culture - Final No growth in 5 days. 10/18/20 20:40 Blood - Blood Anaerobic Blood Culture - Final No growth in 5 days. 10/18/20 20:55 Blood - Blood Aerobic Blood Culture - Final No growth in 5 days. 10/18/20 20:55 Blood - Blood Anaerobic Blood Culture - Final No growth in 5 days. 10/18/20 20:40 Throat Culture & Sensitivity - Final NORMAL UPPER RESPIRATORY MICAELA GROWN. 10/18/20 20:40 Throat Group A Streptococcus Rapid Screen - Final Assessment/ Plan: Nephrology Persistent hypoxia on Bipap. Reports good urine output. No acute events overnight. Case reviewed with the son at the bedside. Vitals, medications, blood work and imaging reviewed in the chart. General: Oriented x3, Cooperative. Obese. HEENT: Atraumatic Neck: Supple Respiratory: Diminished Cardiovascular: LE edema 1+, Regular rate/rhythm Gastrointestinal: Soft and benign, Non-distended Musculoskeletal: No clubbing, No contractures Integumentary: No rashes, No cyanosis Neurological: Normal speech Blood work reviewed in the chart. Imagings Data: EXAM DESCRIPTION: RAD - Chest Single View - 10/26/2020 9:13 am CLINICAL HISTORY: chest pain Chest pain. COMPARISON: Chest Single View dated 10/26/2020; Chest Single View dated 10/23/2020; Chest Single View dated 10/22/2020; Chest Single View dated 10/18/2020 FINDINGS: Portable technique limits examination quality. Extensive bilateral pulmonary opacities are slightly worse compared to 10/26/2020 earlier study. The heart is mildly enlarged in size. No displaced fractures. IMPRESSION: Slight worsening in lung aeration seen since comparative study. Conclusions/Impression: A/P: Continue the current POC and Medications other than the changes listed. AM Labs PRN. Recommend daily weight. Please see the orders for complete details. DEBBI likely hypovolemia -Give Metolozone X1 Hyperkalemia -2K diet LE Edema -Give Metolazone 5 X1. DM II with Hyperglycemia -Continue RISS -Continue Insulin 70/30 Moderate malnutrition -Encourage nutrition COVID-19 Acute hypoxic respiratory failure BL Pulmonary Embolism -Bipap as ordered -Continue Vitamin C and Zinc -Continue Eliquis Case reviewed with Dr. Forde. EXAM DESCRIPTION: CT - Chest For Pe Angio - 10/19/2020 6:32 am CLINICAL HISTORY: SOB TECHNIQUE: Contiguous axial images obtained through the chest during angiographic phase following the uneventful administration of IV contrast. Sag ittal and coronal reformatted images were provided. MIP reformatted images were provided. This exam was performed according to our departmental dose-optimization program, which includes automated exposure control, adjustment of the mA and/or kV according to patient size and/or use of iterative reconstruction technique. COMPARISON: No prior exams provided for comparison. FINDINGS: Diagnostic quality: There is good opacification of the pulmonary arterial tree. Motion artifact degrades image quality and limits evaluation of segmental and subsegmental vessels. Lungs: Extensive multifocal, confluent groundglass opacities within the lungs bilaterally. Airways are patent. Pleura: No effusion. No pneumothorax. Heart and pericardium: The heart is enlarged. There may be slight bowing of the interventricular septum. Minimal pericardial effusion. Mediastinum and alona: No pathologically enlarged lymph nodes. Lower neck and chest wall: Unremarkable Vessels: Central, segmental and subsegmental right lower lobe pulmonary arterial filling defects. Additional scattered segmental and subsegmental right upper, right middle and left lower lobe pulmonary arterial filling defects. No thoracic aortic aneurysm. Upper abdomen: The liver is enlarged and diffusely low in density compatible with steatosis. Bones: Mild multilevel spondylosis. No acute fracture. IMPRESSION: 1. Bilateral pulmonary embolic disease, clot burden is greatest on the right. No saddle embolus. Possible early right-sided heart strain. 2. Extensive multifocal infiltrates bilaterally. Imaging features can be seen with viral pneumonia EXAM DESCRIPTION: RAD - Chest Single View - 10/30/2020 7:10 am CLINICAL HISTORY: covid pneumonia COMPARISON: October 29, October 26 TECHNIQUE: AP portable chest image was obtained 10/30/2020 7:10 am . FINDINGS: Bilateral mid and lower lung field pneumonia changes are noted. Patient may be fractionally improved on the left. Any incremental change is very minimal. Enteric tube extends below the diaphragm but is otherwise obscured from view. Heart size and vasculature are stable. No measurable pleural effusion and no pneumothorax. IMPRESSION: Chest examination is essentially stable. There may be slight improvement in the left lung field. Any incremental change is minimal. LEFT VENTRICULAR WALL MOTION: NORMAL DOPPLER/COLOR FLOW: MILD TRICUPSID REGURGITATION COMMENTS: NORMAL LEFT VENTRICULAR EJECTION FRACTION 60-65%. NORMAL WALL MOTION. RIGHT VENTRICLE IS NOT WELL SEEN. MILD TRICUSPID REGURGITATION. PULMONARY HYPERTENSION WITH RIGHT VENTRICULAR SYSTOLIC PRESSURE OF 55 mmHg AND RIGHT ATRIAL PRESSURE.
[2020-11-01] MEDS: MIRTAZAPINE 15 MG TAB PO SCH (21:17)
[2020-11-02 07:48] LABS: Absolute Lymphocytes (CBC) 0.7 K/uL (0.7-4.9); Basophils % 0.2 % (0-1.3); Hematocrit 43.3 % (39.6-49.0); Lymphocytes % 1.6 % (15.3-44.8); MPV 11.2 fL (7.6-11.3); RBC Red Blood Cell Count 4.83 M/uL (4.33-5.43)
[2020-11-02 08:05] LABS: Albumin 2.8 g/dL (3.4-5.0); Bilirubin Total 1.6 mg/dL (0.2-1.0); C-Reactive Protein 8.79 mg/L (<3.00); Ferritin 2286.9 ng/mL (26-388); Magnesium 3.2 mg/dL (1.8-2.4); Potassium 5.1 mmol/L (3.5-5.1); Protein, Total 6.5 g/dL (6.4-8.2)
[2020-11-02] MEDS ORDERED: SOD POLYSTYREN SUL 15 GM/60 ML UCUP PO ONE (08:19)
[2020-11-02] MEDS: METHYLPREDNISOLONE 125 MG INJ IV SCH ×2 (08:27→21:40)
[2020-11-02] MEDS: modafiniL 100 MG TAB PO SCH (08:28)
[2020-11-02] MEDS: ZINC SULFATE 220 MG CAP PO SCH (08:28)
[2020-11-02] MEDS: VITAMIN D 1000 UNIT TAB PO SCH (08:28)
[2020-11-02] MEDS: THIAMINE 200 MG/2 ML INJ IVP SCH (08:28)
[2020-11-02] MEDS: ASCORBIC ACID 500 MG TABLET PO SCH ×4 (08:28→21:00)
[2020-11-02] MEDS: FAMOTIDINE 20 MG TAB PO SCH ×2 (08:28→21:00)
[2020-11-02] MEDS: CEFTRIAXONE/SWI 1gm 1 GM/10 ML SYR IVP SCH (08:29)
[2020-11-02] MEDS: INSULIN -REGULAR HUMAN 50 UNIT/0.5 ML ML SQ SCH ×4 (08:29→21:38)
[2020-11-02] MEDS: INSULIN 70/30 100 UNITS/ML SQ SCH ×2 (08:30→16:15)
[2020-11-02] MEDS: GLUCERNA 1.5 CAL 1,000 ML BOT FT SCH ×3 (08:33→21:00)
[2020-11-02] MEDS: ENSURE HIGH PROTEIN 237 ML CAN PO SCH ×2 (08:33→21:00)
[2020-11-02] MEDS ORDERED: D5W 1,000 ML IV SCH (09:00)
[2020-11-02 09:46] LABS: Platelet Estimate DECR
[2020-11-02 09:48] LABS: Blood Morphology Comment NOT SEEN (NOT SEEN)
[2020-11-02] MEDS: LORazepam 2 MG/ML VIAL IV PRN ×2 (12:45→22:36)
--- NOTE | 2020-11-02 16:25 | P.PN ---
Subjective Date of Service: 11/02/20 Chief Complaint: covid pneumonia, bilateral PE Patient is dependent on the BIPAP No major changes from yesterday. Nurse report patient keeps removing BiPAP. Leukocytosis continued to worsen. Physical Examination - Vital Signs Temperature: 97.4 F Blood Pressure: 142/88 Pulse: 92 Respirations: 20 Pulse Ox (%): 92 - Physical Exam General: In no apparent distress, Other (Awake) HEENT: Other (BiPAP) Respiratory: Other (Nonlabored breathing) Cardiovascular: Regular rate/rhythm, Edema (Bilateral lower extremities) Gastrointestinal: Soft and benign, Non-distended Musculoskeletal: Swelling (Bilateral lower extremities) Integumentary: No rashes Neurological: Normal strength at 5/5 x4 extr, Cranial nerves 3-12 intact Assessment And Plan - Current Problems (Diagnosis) (1) Acute respiratory failure with hypoxia Current Visit: Yes Status: Acute (2) Pneumonia due to COVID-19 virus Current Visit: Yes Status: Acute (3) Pulmonary embolism Current Visit: Yes Status: Acute Qualifiers: Pulmonary embolism type: unspecified Chronicity: acute Acute cor pulmonale presence: unspecified Qualified Code(s): I26.99 - Other pulmonary embolism without acute cor pulmonale (4) Hyperglycemia, drug-induced Current Visit: Yes Status: Acute Physician Review Additional Text: Problem List Acute respiratory failure with hypoxia secondary to COVID-19 pneumonia Acute bilateral Pulmonary embolism Hyperglycemia, steroid induced DIC Thrombocytopenia Hyperkalemia DEBBI, prerenal -continue BIPAP, HFNC as tolerated, continue solumedrol, vitamin supplementation, s/p Ivermectin, s/p convalescent plasma, s/p Remdesevir -eliquis for bilateral PEs - discontinued 10/31, pt with thrombocytopenia -restart eliquis when plt >50k -workup consistent with DIC / COVID coagulopathy, given high d-dimer, low fibrinogen, thrombocytopenia -pulm is following -continue insulin sliding scale, hyperglycemic - steroid induced, titrate 70/30 as needed -patient continues to be very tired, mask off multiple times per nursing staff. -continue IV rocephin and add IV vancomycin to cover for bacterial superinfection. -serum creatinine is trending up. Nephrology ordered brief IV fluid. Continue to monitor renal function. -Afrin ordered for nosebleed VTE: SCDs Code: DNI Guarded prognosis.
[2020-11-02] MEDS ORDERED: VANCOMYCIN IVPB SCH (18:00)
[2020-11-02] MEDS ORDERED: NA CHLORIDE IVPB SCH (18:00)
--- NOTE | 2020-11-02 19:11 | P.PN ---
Date of Service: 11/02/20 Vital Signs Temp Pulse Resp BP Pulse Ox 97.4 F 92 H 20 142/88 H 92 11/02/20 16:28 11/02/20 16:28 11/02/20 16:28 11/02/20 16:28 11/02/20 16:28 Medications Acetaminophen (Acetaminophen 500 Mg Tab) 500 mg PO Q4HP PRN PRN Reason: Pain scale 2-4 (Mild) Albuterol Sulfate (Albuterol 2.5 Mg/3 Ml Neb Marija) 2.5 mg NEB Q6HP PRN PRN Reason: SHORTNESS OF BREATH Last Admin: 10/30/20 04:30 Dose: 2.5 mg Documented by: Ascorbic Acid (Ascorbic Acid 500 Mg Tablet) 500 mg PO QID [facility] Last Admin: 11/02/20 16:16 Dose: Not Given Documented by: Benzonatate (Benzonatate 100 Mg Cap) 100 mg PO TID PRN PRN Reason: COUGH Last Admin: 10/31/20 22:03 Dose: 100 mg Documented by: Cholecalciferol (Vitamin D 1000 Unit Tab) 4,000 unit PO DAILY ROBIN Last Admin: 11/02/20 08:28 Dose: 4,000 unit Documented by: Enteral Nutritional Formula (Glucerna 1.5 Vic 1,000 Ml Bot) 237 ml FT TID [facility] Last Admin: 11/02/20 12:47 Dose: Not Given Documented by: Famotidine (Famotidine 20 Mg Tab) 40 mg PO BID [facility]; Protocol Last Admin: 11/02/20 08:28 Dose: 40 mg Documented by: Ceftriaxone Sodium/Sodium Chloride (Rocephin 1 Gm/10 Ml Swi Ivp) 1 gm in 10 mls @ 600 mls/hr IVP DAILY [facility]; Protocol Last Admin: 11/02/20 08:29 Dose: 10 mls Documented by: Vancomycin HCl 2 gm/ Sodium (Chloride) 1 gm in 500 mls @ 333.333 mls/hr IVPB Q24H [facility]; Protocol Last Admin: 11/02/20 17:56 Dose: 500 mls Documented by: Insulin Human Isoph/Insulin Regular (Insulin 70/30 100 Units/Ml) 25 unit SQ BIDAC [facility] Last Admin: 11/02/20 16:15 Dose: 25 unit Documented by: Insulin Human Regular (Insulin -Regular Human 50 Unit/0.5 Ml Ml) 0 unit SQ ACHS [facility]; Protocol Last Admin: 11/02/20 16:14 Dose: 8 unit Documented by: Lorazepam (Lorazepam 2 Mg/Ml Vial) 0.5 mg IV Q8H PRN PRN Reason: ANXIETY Last Admin: 11/02/20 12:45 Dose: 0.5 mg Documented by: Melatonin (Melatonin 5 Mg Tablet) 10 mg PO BEDTIME PRN PRN PRN Reason: INSOMNIA Last Admin: 10/31/20 22:03 Dose: 10 mg Documented by: Methylprednisolone Sodium Succinate (Methylprednisolone 125 Mg Inj) 80 mg IV BID [facility] Last Admin: 11/02/20 08:27 Dose: 80 mg Documented by: Mirtazapine (Mirtazapine 15 Mg Tab) 15 mg PO BEDTIME [facility] Last Admin: 11/01/20 21:17 Dose: 15 mg Documented by: Modafinil (Modafinil 100 Mg Tab) 100 mg PO DAILY [facility] Last Admin: 11/02/20 08:28 Dose: 100 mg Documented by: Morphine Sulfate (Morphine 2 Mg/Ml Syr) 2 mg IV Q4H PRN PRN Reason: Pain scale 5-7 (Moderate) Last Admin: 11/01/20 04:25 Dose: 2 mg Documented by: Nutritional Formula (Ensure High Protein 237 Ml Can) 237 ml PO BID [facility] Last Admin: 11/02/20 08:33 Dose: 237 ml Documented by: Ondansetron HCl (Ondansetron 4 Mg/2 Ml Vial) 4 mg IV Q6HP PRN PRN Reason: NAUSEA / VOMITING Last Admin: 11/02/20 17:22 Dose: 4 mg Documented by: Oxymetazoline HCl (Oxymetazoline Hcl 0.05% 15ml) 2 appl JESUS BID PRN PRN Reason: NASAL CONGESTION Last Admin: 10/31/20 16:31 Dose: 2 sprays Documented by: Sodium Chloride (Flush Normal Saline 10 Ml) 10 ml IV BID [facility] Last Admin: 11/02/20 08:32 Dose: 10 ml Documented by: Thiamine HCl (Thiamine 200 Mg/2 Ml Inj) 200 mg IVP DAILY [facility] Last Admin: 11/02/20 08:28 Dose: 200 mg Documented by: Zinc Sulfate (Zinc Sulfate 220 Mg Cap) 220 mg PO DAILY [facility] Last Admin: 11/02/20 08:28 Dose: 220 mg Documented by: Microbiology Results 10/18/20 20:40 Blood - Blood Aerobic Blood Culture - Final No growth in 5 days. 10/18/20 20:40 Blood - Blood Anaerobic Blood Culture - Final No growth in 5 days. 10/18/20 20:55 Blood - Blood Aerobic Blood Culture - Final No growth in 5 days. 10/18/20 20:55 Blood - Blood Anaerobic Blood Culture - Final No growth in 5 days. 10/18/20 20:40 Throat Culture & Sensitivity - Final NORMAL UPPER RESPIRATORY MICAELA GROWN. 10/18/20 20:40 Throat Group A Streptococcus Rapid Screen - Final Assessment/ Plan: Nephrology Persistent hypoxia on Bipap. No acute events overnight. Limited IH/ ROS due to respiratory failure. Vitals, medications, blood work and imaging reviewed in the chart. General: Oriented x3, Cooperative. Obese. HEENT: Atraumatic Neck: Supple Respiratory: Diminished Cardiovascular: LE edema 1+, Regular rate/rhythm Gastrointestinal: Soft and benign, Non-distended Musculoskeletal: No clubbing, No contractures Integumentary: No rashes, No cyanosis Neurological: Normal speech Blood work reviewed in the chart. Imagings Data: EXAM DESCRIPTION: RAD - Chest Single View - 10/26/2020 9:13 am CLINICAL HISTORY: chest pain Chest pain. COMPARISON: Chest Single View dated 10/26/2020; Chest Single View dated 10/23/2020; Chest Single View dated 10/22/2020; Chest Single View dated 10/18/2020 FINDINGS: Portable technique limits examination quality. Extensive bilateral pulmonary opacities are slightly worse compared to 10/26/2020 earlier study. The heart is mildly enlarged in size. No displaced fractures. IMPRESSION: Slight worsening in lung aeration seen since comparative study. Conclusions/Impression: A/P: Continue the current POC and Medications other than the changes listed. AM Labs PRN. Recommend daily weight. Please see the orders for complete details. DEBBI likely hypovolemia -Give a liter of D5W Hyperkalemia -2g K diet -Kayexalate 15g X1 LE Edema -2g Na diet DM II with Hyperglycemia -Continue RISS -Continue Insulin 70/30 Moderate malnutrition -Encourage nutrition COVID-19 Acute hypoxic respiratory failure BL Pulmonary Embolism -Bipap as ordered -Continue Vitamin C and Zinc -Continue Eliquis EXAM DESCRIPTION: CT - Chest For Pe Angio - 10/19/2020 6:32 am CLINICAL HISTORY: SOB TECHNIQUE: Contiguous axial images obtained through the chest during angiographic phase following the uneventful administration of IV contrast. Sagittal and coronal reformatted images were provided. MIP reformatted images were provided. This exam was performed according to our departmental dose-optimization program, which includes automated exposure control, adjustment of the mA and/or kV according to patient size and/or use of iterative reconstruction technique. COMPARISON: No prior exams provided for comparison. FINDINGS: Diagnostic quality: There is good opacification of the pulmonary arterial tree. Motion artifact degrades image quality and limits evaluation of segmental and subsegmental vessels. Lungs: Extensive multifocal, confluent groundglass opacities within the lungs bilaterally. Airways are patent. Pleura: No effusion. No pneumothorax. Heart and pericardium: The heart is enlarged. There may be slight bowing of the interventricular septum. Minimal pericardial effusion. Mediastinum and alona: No pathologically enlarged lymph nodes. Lower neck and chest wall: Unremarkable Vessels: Central, segmental and subsegmental right lower lobe pulmonary arterial filling defects. Additional scattered segmental and subsegmental right upper, right middle and left lower lobe pulmonary arterial filling defects. No thoracic aortic aneurysm. Upper abdomen: The liver is enlarged and diffusely low in density compatible with steatosis. Bones: Mild multilevel spondylosis. No acute fracture. IMPRESSION: 1. Bilateral pulmonary embolic disease, clot burden is greatest on the right. No saddle embolus. Possible early right-sided heart strain. 2. Extensive multifocal infiltrates bilaterally. Imaging features can be seen with viral pneumonia EXAM DESCRIPTION: RAD - Chest Single View - 10/30/2020 7:10 am CLINICAL HISTORY: covid pneumonia COMPARISON: October 29October 26 TECHNIQUE: AP portable chest image was obtained 10/30/2020 7:10 am . FINDINGS: Bilateral mid and lower lung field pneumonia changes are noted. Patient may be fractionally improved on the left. Any incremental change is very minimal. Enteric tube extends below the diaphragm but is otherwise obscured from view. Heart size and vasculature are stable. No measurable pleural effusion and no pneumothorax. IMPRESSION: Chest examination is essentially stable. There may be slight improvement in the left lung field. Any incremental change is minimal. LEFT VENTRICULAR WALL MOTION: NORMAL DOPPLER/COLOR FLOW: MILD TRICUPSID REGURGITATION COMMENTS: NORMAL LEFT VENTRICULAR EJECTION FRACTION 60-65%. NORMAL WALL MOTION. RIGHT VENTRICLE IS NOT WELL SEEN. MILD TRICUSPID REGURGITATION. PULMONARY HYPERTENSION WITH RIGHT VENTRICULAR SYSTOLIC PRESSURE OF 55 mmHg AND RIGHT ATRIAL PRESSURE.
[2020-11-02] MEDS: MORPHINE 2 MG/ML SYR IV PRN (19:37)
[2020-11-02] MEDS: MIRTAZAPINE 15 MG TAB PO SCH (21:00)
[2020-11-03] MEDS: MORPHINE 2 MG/ML SYR IV PRN (03:10)
[2020-11-03 05:17] LABS: Absolute Lymphocytes (CBC) 0.9 K/uL (0.7-4.9); Albumin 2.6 g/dL (3.4-5.0); Hematocrit 40.2 % (39.6-49.0); Lymphocytes % 2.6 % (15.3-44.8); MPV 7.6 fL (7.6-11.3); Phosphorus 4.5 mg/dL (2.5-4.9); Potassium 5.3 mmol/L (3.5-5.1); RBC Red Blood Cell Count 4.43 M/uL (4.33-5.43)
[2020-11-03 06:07] LABS: Arterial Blood Carboxyhemoglob 1.7 % (0-1.5); Blood Gas Oxyhemoglobin 58.6 % (94-97); Blood O2 Saturation 60.3 % (92-98.5)
[2020-11-03 08:24] VITALS: O2SAT 87
[2020-11-03 08:35] VITALS: BP 126/86; TEMP 96.8
[2020-11-03] MEDS ORDERED: EPINEPHrine 1 MG/10 ML SYR IV ONE ×2 (10:49→11:27)
--- NOTE | 2020-11-03 11:57 | RAD REPORT ---
EXAM DESCRIPTION: XR CHEST 1 VIEW CLINICAL HISTORY: Covid pneumonia. COMPARISON: Chest radiograph from October 30, 2020. TECHNIQUE: Single view AP chest radiograph(s). FINDINGS: Moderate diffuse pulmonary interstitial thickening, similar to prior. No pleural effusion. No pneumothorax. Mild cardiomegaly. No significant osseous abnormality. IMPRESSION: Similar appearance of moderate diffuse pulmonary interstitial thickening and mild cardio megaly. Electronically signed by: Sachi Esteban MD 11/02/2020 9:48 PM CDT Due to temporary technical issues with the PACS/Fluency reporting system, reports are being signed by the in house radiologist without review as a courtesy to ensure prompt reporting. The interpreting r adiologist is fully responsible for the content of the report.
--- NOTE | 2020-11-03 19:16 | P.DS ---
Admission Date: 10/19/20 Discharge Date: 11/03/20 Disposition: Reason for Admission: covid pneumonia, bilateral PE - Problems (1) Acute respiratory failure with hypoxia Status: Acute (2) Pneumonia due to COVID-19 virus Status: Acute (3) Pulmonary embolism Status: Acute Qualifiers: Pulmonary embolism type: unspecified Chronicity: acute Acute cor pulmonale presence: unspecified Qualified Code(s): I26.99 - Other pulmonary embolism without acute cor pulmonale (4) Hyperglycemia, drug-induced Status: Acute Brief History of Present Illness: Mr. Last is a 50 yo male with significant history of chronic systolic heart failure presented to the emergency department for 3 weeks of cough and fatigue. He tested positive for COVID 19. He also reported anorexia, chills, diarrhea for 1 week, and SOB on the day of admission. D Dimer 3680. CTPE showed bilateral pulmonary embolic disease, clot burden is greatest on the right. No saddle embolus. Possible early right-sided heart strain. Extensive multifocal infiltrates bilaterally. Patient was requiring high-flow oxygen. He was admitted for further management. Hospital Course: Patient admitted to the medical floor and treated for the COVID pneumonia with IV steroid, vitamin supplementation. Patient was treated with IV Remdesivir, received convalescent plasma and started on Eliquis for the pulmonary embolism. Patient required BiPAP and high-flow oxygen. He did not respond to treatment. His clinical condition got worse, he developed DIC, left sided weakness suspected to be secondary to acute stroke. Patient developed PEA, ACLS was carried out, with no recovery. Patient on 11/03/2020 at 0503 hours. Vital Signs/Physical Exam: Temp Pulse Resp BP Pulse Ox 96.8 F 130 H 30 H 126/86 72 L 11/03/20 04:08 11/03/20 04:08 11/03/20 04:08 11/03/20 04:08 11/03/20 04:08 Laboratory Data at Discharge: WBC 35.30 K/uL (4.3-10.9) H* 11/03/20 03:34 Hgb 13.1 g/dL (13.6-17.9) L 11/03/20 03:34 Hct 40.2 % (39.6-49.0) 11/03/20 03:34 Plt Count 17 K/uL (152-406) L* D 11/03/20 03:34 PT 19.7 SECONDS (9.5-12.5) H 10/31/20 08:08 INR 1.70 10/31/20 08:08 APTT 23.1 SECONDS (24.3-36.9) L 10/31/20 08:08 Sodium 144 mmol/L (136-145) 11/03/20 03:34 Potassium 5.3 mmol/L (3.5-5.1) H 11/03/20 03:34 BUN 79 mg/dL (7-18) H 11/03/20 03:34 Creatinine 1.95 mg/dL (0.55-1.3) H 11/03/20 03:34 Glucose 275 mg/dL (74-106) H 11/03/20 03:34 Uric Acid 7.4 mg/dL (3.5-7.2) H 10/28/20 03:08 Phosphorus 4.5 mg/dL (2.5-4.9) 11/03/20 03:34 Magnesium 3.2 mg/dL (1.8-2.4) H 11/02/20 07:11 Total Bilirubin 1.6 mg/dL (0.2-1.0) H 11/02/20 07:11 AST 91 U/L (15-37) H 11/02/20 07:11 ALT 109 U/L (12-78) H 11/02/20 07:11 Alkaline Phosphatase 120 U/L (45-117) H 11/02/20 07:11 Troponin I 0.07 ng/mL (0.0-0.045) H 10/27/20 16:05 Triglycerides 160 mg/dL (<150) H 10/20/20 03:11 Cholesterol 175 mg/dL (<200) 10/20/20 03:11 HDL Cholesterol 26 mg/dL (40-60) L 10/20/20 03:11 Cholesterol/HDL Ratio 6.73 10/20/20 03:11 Lipase Cancelled 10/18/20 20:30 Home Medications: NK [No Home Meds] 10/19/20 Followup: NONE,NONE [Primary Care Provider] -
== END 2020-11-03 10:50 | disposition expired | DRG 871 ==
LOC: ER 20:12 → ERHOLD 10-19 00:41 → 4TH 10-19 01:05
PROVIDERS: ADMIT Internal Medicine; ATTEND Internal Medicine
PROC: 5A09557 Assistance with Respiratory Ventilation, Greater than 96 Consecutive Hours, Continuous Positive Airway Pressure (ICD-10-PCS; 2020-10-19)
PROC: XW13325 Transfusion of Convalescent Plasma (Nonautologous) into Peripheral Vein, Percutaneous Approach, New Technology Group 5 (ICD-10-PCS; 2020-10-19)
PROC: XW033E5 Introduction of Remdesivir Anti-infective into Peripheral Vein, Percutaneous Approach, New Technology Group 5 (ICD-10-PCS; principal; 2020-10-21)
DX: A41.89 Other specified sepsis (principal); U07.1 COVID-19; J12.82 Pneumonia due to coronavirus disease 2019; I26.99 Other pulmonary embolism without acute cor pulmonale; J96.01 Acute respiratory failure with hypoxia; E43 Unspecified severe protein-calorie malnutrition; D65 Disseminated intravascular coagulation [defibrination syndrome]; I63.9 Cerebral infarction, unspecified; G81.94 Hemiplegia, unspecified affecting left nondominant side; N17.9 Acute kidney failure, unspecified; I50.22 Chronic systolic (congestive) heart failure; F32.9 Major depressive disorder, single episode, unspecified; F41.9 Anxiety disorder, unspecified; E87.5 Hyperkalemia; E11.65 Type 2 diabetes mellitus with hyperglycemia; T38.0X5A Adverse effect of glucocorticoids and synthetic analogues, initial encounter; Z68.36 Body mass index [BMI] 36.0-36.9, adult
CPT/HCPCS: 0240U; 36415; 71045; 71275; 80048; 80053; 80061; 80069; 80076; 81003; 81015; 82728; 82805; 82947; 83036; 83605; 83735; 84100; 84145; 84439; 84443; 84484; 84550; 85025; 85379; 85384; 85610; 85730; 86140; 86900; 86901; 86927; 87040; 87070; 87081; 93005; 93306; 94003; 94640; 94660; 94760; 94762; 96374; 99291; 99292; J0171; J0696; J1815; J1940; J2270; J2405; J2543; J2920; J2930; J3370; J3411; J7040; J7050; Q9967